=== PATIENT | female | born 1945 | race Caucasian/White ===

== ENCOUNTER 2018-02-03 21:47 | Emergency (ER) | payer MEDICARE, OTHER ==
[2018-02-03 21:59] VITALS: TEMP 98.2
[2018-02-03] MEDS ORDERED: MORPHINE SULFATE 4 MG/ML SYRINGE IV STA (22:13)
[2018-02-03] MEDS ORDERED: SODIUM CHLORIDE 0.9% 500 ML 500 ML IV STA (22:13)
--- NOTE | 2018-02-03 22:27 | ED ---
General Adult HPI - General Chief complaint: Abdominal Pain Stated complaint: abd pain Time Seen by Provider: 02/03/18 22:02 Source: patient, RN notes reviewed, old records reviewed Mode of arrival: ambulatory Limitations: no limitations - History of Present Illness Initial comments: 72-year-old female presents for evaluation of abdominal pain. Patient will present for the past 6 hours. This came after eating. Pain is been intermittent crampy in nature. Patient reports subjective fever and chills. She has had intermittent abdominal pain for some time and is scheduled for outpatient CT within the next several weeks. Denies any change in her bowels. No vomiting however she has had nausea. Denies chest pain. Denies epigastric pain. - Related Data Home Medications Medication Instructions Recorded Confirmed Levothyroxine Sodium [Synthroid] 175 mcg PO DAILY 02/03/18 02/03/18 Allergies Allergy/AdvReac Type Severity Reaction Status Date / Time No Known Allergies Allergy Verified 02/03/18 22:21 Review of Systems ROS Statement: Those systems with pertinent positive or pertinent negative responses have been documented in the HPI. ROS Other: All systems not noted in ROS Statement are negative. Past Medical History Past Medical History: Osteoarthritis (OA), Seizure Disorder Additional Past Medical History / Comment(s): seizures as a child History of Any Multi-Drug Resistant Organisms: None Reported Past Surgical History: Hysterectomy Past Psychological History: No Psychological Hx Reported Smoking Status: Current every day smoker Past Alcohol Use History: None Reported Past Drug Use History: Marijuana General Exam Limitations: no limitations General appearance: alert, in no apparent distress Head exam: Present: atraumatic, normocephalic Eye exam: Present: normal appearance, PERRL ENT exam: Present: normal exam Neck exam: Present: normal inspection. Absent: tenderness, meningismus Respiratory exam: Present: normal lung sounds bilaterally. Absent: respiratory distress, wheezes Cardiovascular Exam: Present: regular rate, normal rhythm GI/Abdominal exam: Present: soft, tenderness (Periumbilical tenderness to palpation). Absent: distended, guarding, rebound Extremities exam: Present: normal inspection, normal capillary refill. Absent: pedal edema Neurological exam: Present: alert, oriented X3, CN II-XII intact. Absent: motor sensory deficit Psychiatric exam: Present: normal affect, normal mood Skin exam: Present: warm, dry, intact. Absent: cyanosis, diaphoretic Course Vital Signs 02/03/18 21:51 Temperature 98.2 F Pulse Rate 84 Respiratory 18 Rate Blood Pressure 129/75 O2 Sat by Pulse 97 Oximetry Medical Decision Making - Medical Decision Making 72-year-old female presenting for crampy abdominal pain. Patient has had 2 bowel movements today. She is passing gas. Pain is periumbilical. She was scheduled for an outpatient computed tomography scan in the next one week. This was obtained in the emergency department, consistent with ileus. There is mild dilatation of the biliary tree, patient is status post cholecystectomy. She will be given GI follow-up regarding this abnormality. Otherwise laboratory studies are within normal limits, normal white blood cell count, stable hemoglobin, normal lactic acid. I reevaluation, patient is feeling better. She is offered observation for continues to deny treatment and GI consultation. She prefers outpatient follow-up. She is given GI follow-up regarding dilated biliary tree. She will continue symptomatic treatment at home. - Lab Data Result diagrams: 02/03/18 22:33 02/03/18 22:33 Lab Results 02/03/18 02/03/18 02/03/18 Range/Units 22:33 22:33 22:33 WBC 8.4 (3.8-10.6) k/uL RBC 5.08 (3.80-5.40) m/uL Hgb 15.7 (11.4-16.0) gm/dL Hct 48.9 H (34.0-46.0) % MCV 96.2 (80.0-100.0) fL MCH 30.9 (25.0-35.0) pg MCHC 32.1 (31.0-37.0) g/dL RDW 14.2 (11.5-15.5) % Plt Count 260 (150-450) k/uL Neutrophils % 73 % Lymphocytes % 19 % Monocytes % 6 % Eosinophils % 1 % Basophils % 1 % Neutrophils # 6.1 (1.3-7.7) k/uL Lymphocytes # 1.6 (1.0-4.8) k/uL Monocytes # 0.5 (0-1.0) k/uL Eosinophils # 0.1 (0-0.7) k/uL Basophils # 0.0 (0-0.2) k/uL Sodium 137 (137-145) mmol/L Potassium 4.3 (3.5-5.1) mmol/L Chloride 107 (98-107) mmol/L Carbon Dioxide 23 (22-30) mmol/L Anion Gap 7 mmol/L BUN 22 H (7-17) mg/dL Creatinine 0.57 (0.52-1.04) mg/dL Est GFR (CKD-EPI)AfAm >90 (>60 ml/min/1.73 sqM) Est GFR (CKD-EPI)NonAf >90 (>60 ml/min/1.73 sqM) Glucose 124 H (74-99) mg/dL Plasma Lactic Acid Paulo 1.2 (0.7-2.0) mmol/L Calcium 10.1 (8.4-10.2) mg/dL Total Bilirubin 0.5 (0.2-1.3) mg/dL AST 39 H (14-36) U/L ALT 41 (9-52) U/L Alkaline Phosphatase 193 H (38-126) U/L Total Protein 7.3 (6.3-8.2) g/dL Albumin 4.1 (3.5-5.0) g/dL Amylase 38 (30-110) U/L Lipase 25 (23-300) U/L Urine Color Urine Appearance (Clear) Urine pH (5.0-8.0) Ur Specific [place] (1.001-1.035) Urine Protein (Negative) Urine Glucose (UA) (Negative) Urine Ketones (Negative) Urine Blood (Negative) Urine Nitrite (Negative) Urine Bilirubin (Negative) Urine Urobilinogen (<2.0) mg/dL Ur Leukocyte Esterase (Negative) 02/04/18 Range/Units 00:09 WBC (3.8-10.6) k/uL RBC (3.80-5.40) m/uL Hgb (11.4-16.0) gm/dL Hct (34.0-46.0) % MCV (80.0-100.0) fL MCH (25.0-35.0) pg MCHC (31.0-37.0) g/dL RDW (11.5-15.5) % Plt Count (150-450) k/uL Neutrophils % % Lymphocytes % % Monocytes % % Eosinophils % % Basophils % % Neutrophils # (1.3-7.7) k/uL Lymphocytes # (1.0-4.8) k/uL Monocytes # (0-1.0) k/uL Eosinophils # (0-0.7) k/uL Basophils # (0-0.2) k/uL Sodium (137-145) mmol/L Potassium (3.5-5.1) mmol/L Chloride (98-107) mmol/L Carbon Dioxide (22-30) mmol/L Anion Gap mmol/L BUN (7-17) mg/dL Creatinine (0.52-1.04) mg/dL Est GFR (CKD-EPI)AfAm (>60 ml/min/1.73 sqM) Est GFR (CKD-EPI)NonAf (>60 ml/min/1.73 sqM) Glucose (74-99) mg/dL Plasma Lactic Acid Paulo (0.7-2.0) mmol/L Calcium (8.4-10.2) mg/dL Total Bilirubin (0.2-1.3) mg/dL AST (14-36) U/L ALT (9-52) U/L Alkaline Phosphatase (38-126) U/L Total Protein (6.3-8.2) g/dL Albumin (3.5-5.0) g/dL Amylase (30-110) U/L Lipase (23-300) U/L Urine Color Light Yellow Urine Appearance Clear (Clear) Urine pH 6.0 (5.0-8.0) Ur Specific [place] 1.012 (1.001-1.035) Urine Protein Negative (Negative) Urine Glucose (UA) Negative (Negative) Urine Ketones Negative (Negative) Urine Blood Negative (Negative) Urine Nitrite Negative (Negative) Urine Bilirubin Negative (Negative) Urine Urobilinogen <2.0 (<2.0) mg/dL Ur Leukocyte Esterase Negative (Negative) Disposition Clinical Impression: Abdominal pain, Ileus Disposition: HOME SELF-CARE Condition: Stable Instructions: Abdominal Pain (ED), Ileus (ED) Is patient prescribed a controlled substance at d/c from ED?: No Referrals: Jennifer Mcallister DO [Primary Care Provider] - 1-2 days Edgar Root MD [STAFF PHYSICIAN] - 1-2 days Time of Disposition: 00:23
[2018-02-03 23:08] LABS: ALT 41 U/L (9-52); AST 39 U/L (14-36); Albumin 4.1 g/dL (3.5-5.0); Alkaline Phosphatase 193 U/L (38-126); Amylase 38 U/L (30-110); Anion Gap 7 mmol/L; Blood Urea Nitrogen 22 mg/dL (7-17); Calcium 10.1 mg/dL (8.4-10.2); Carbon Dioxide 23 mmol/L (22-30); Chloride 107 mmol/L (98-107); Glucose 124 mg/dL (74-99); Lipase 25 U/L (23-300); Potassium 4.3 mmol/L (3.5-5.1); Sodium 137 mmol/L (137-145); Total Bilirubin 0.5 mg/dL (0.2-1.3); Total Protein 7.3 g/dL (6.3-8.2)
[2018-02-03 23:15] LABS: Basophils % (A) 1 %; Eosinophils # (A) 0.1 k/uL (0-0.7); Eosinophils % (A) 1 %; HCT 48.9 % (34.0-46.0); HGB 15.7 gm/dL (11.4-16.0); Lymphocytes # (A) 1.6 k/uL (1.0-4.8); Lymphocytes % (A) 19 %; MCH 30.9 pg (25.0-35.0); MCHC 32.1 g/dL (31.0-37.0); MCV 96.2 fL (80.0-100.0); Mean Platelet Volume 6.9; Monocytes # (A) 0.5 k/uL (0-1.0); Monocytes % (A) 6 %; Neutrophils # (A) 6.1 k/uL (1.3-7.7); Neutrophils % (A) 73 %; Platelet Count 260 k/uL (150-450); RBC 5.08 m/uL (3.80-5.40); RDW 14.2 % (11.5-15.5); WBC 8.4 k/uL (3.8-10.6)
--- NOTE | 2018-02-04 00:04 | CT ---
EXAMINATION TYPE: CT abdomen pelvis w con DATE OF EXAM: 02/03/2018 COMPARISON: None HISTORY: No prior, mid abd pain starting tonight CT DLP: 462.70 mGycm Automated exposure control for dose reduction was used. TECHNIQUE: Helical acquisition of images was performed from the lung bases through the pelvis. CONTRAST: Performed without Oral Contrast and with IV Contrast, patient injected with 100 mL of Isovue 300. FINDINGS: There is subsegmental atelectasis at the lung bases. Heart is slightly enlarged. There is no pericard ial effusion. There is no pleural effusion. There is mild dilation of the biliary tree. There are clips from cholecystectomy. Spleen appears norm al. Stomach is large. There is no evidence of a pancreatic mass. There is no adrenal mass. Bladder distends smoothly. There are some diverticula in the sigmoid colon. There is no evidence of diverticulitis. Abdominal aorta is atheromatous. There is no inguinal hernia . There is no evidence of a pelvic mass. There is a first-degree L3-4 spondylolisthesis. There is mod erately severe L3-4 bony spinal stenosis. There is posterior fusion surgery at L4-5. There is narrowi ng of disc spaces throughout the lumbar spine. There is no acute compression fracture. There is sligh t anterior wedging of L3 and L1 vertebra that appears old. There are multiple fluid-filled loops of d istal small bowel. There is fluid in the right colon. IMPRESSION: FLUID IN THE SMALL BOWEL AND LARGE BOWEL SUGGESTIVE OF ILEUS. NO FREE AIR. MILDLY DILATED BILIARY TREE. NO OBSTRUCTING MASS SEEN. MRCP MIGHT BE HELPFUL FOR FURTHER EVALUATION. L3-4 MODERATE BONY SPINAL STENOSIS.
[2018-02-04 00:20] LABS: Appearance,Urine Clear (Clear); Bilirubin,Urine Negative (Negative); Blood,Urine Negative (Negative); Color,Urine Light Yellow; Glucose,Urine (UA) Negative (Negative); Ketones,Urine Negative (Negative); Leukocyte Esterase,Urine Negative (Negative); Nitrite,Urine Negative (Negative); Protein,Urine Negative (Negative); Specific Gravity,Urine 1.012 (1.001-1.035); Urobilinogen,Urine <2.0 mg/dL (<2.0)
[2018-02-04 00:49] VITALS: BP 124/78; PULSE 86; RESP 16
== END 2018-02-04 00:48 | disposition home or self-care (01) ==
LOC: EEVIPCON 21:47 → EC 21:47
DX: K56.7 Ileus, unspecified (principal); K83.8 Other specified diseases of biliary tract; F17.200 Nicotine dependence, unspecified, uncomplicated; Z79.899 Other long term (current) drug therapy; Z90.49 Acquired absence of other specified parts of digestive tract
CPT/HCPCS: 99285; 96374; 96361; 36415; 80053; 82150; 83605; 83690; 85025; 81003; 74177; J2270; Q9967

== ENCOUNTER → 2018-02-10 | Outpatient (CLI) | payer MEDICARE, OTHER ==
[2018-02-10 12:33] LABS: Blood Urea Nitrogen 20 mg/dL (7-17)
--- NOTE | 2018-02-10 16:03 | CT ---
EXAMINATION TYPE: CT abdomen pelvis w con DATE OF EXAM: 02/10/2018 COMPARISON: 02/03/2018 INDICATION: Generalized abdominal pain and melena. DLP: 629 mGycm, Automated exposure control for dose reduction was used. CONTRAST: 100 mL of Isovue M300. Study performed with Oral Contrast TECHNIQUE: Axial images were obtained from above the diaphragm to the pubic rami in the axial plane a t 5 mm thick sections. Reconstructed images are reviewed on the computer in the coronal plane. FINDINGS: Limited CT sections are obtained the lung bases. The lung bases are clear. CT ABDOMEN: There is a paucity of abdomen fat which makes evaluation somewhat difficult. Liver: Normal Spleen: Normal Pancreas: Pancreas is atrophic. Adrenal glands: No suspicious enlargement is identified. Left adrenal gland is not well visualized. Gallbladder: Surgically absent Kidneys: No masses are evident. No hydronephrosis is present. No cysts are present. Delayed images were obtained through the kidneys, which remain unremarkable. Aorta: Vascular calcification is within the aorta. There is a small section which is taller than wid e and within the midabdomen measuring 2.5 cm in AP dimension. Aorta is otherwise unremarkable. Inferior vena cava: Normal. CT PELVIS: Loops of bowel within the abdomen and pelvis are normal. Fecal debris is in the distal colon. Appendix: Normal as limitedly visualized. Urinary bladder: Normal. Genitourinary structures: Uterus and ovaries are not identified. Osseous structures: No suspicious lytic or sclerotic lesions. Pedicle screws are in the lower lumbar spine. IMPRESSIONS: 1.
== END | disposition home or self-care (01) ==
LOC: RADCTMAIN 11:52
PROVIDERS: ATTEND Family Medicine
DX: K92.1 Melena (principal)
CPT/HCPCS: 82565; 84520; 74177; 36415; Q9967

== ENCOUNTER → 2018-02-15 | Day surgery (SDC) | payer MEDICARE, OTHER ==
[~2018-02-15] MED LIST: LACTATED RINGERS 1,000 ML IV SCH; LIDOCAINE 1% 20 ML VIAL (10MG/ML) FOR IV START INTRADERMA ONE; LIDOCAINE 1% INJ 10MG/ML (20 ML MDV) ONE; PROPOFOL 10 MG/ML 20 ML VIAL IV ONE; fentaNYL (PF) 50 MCG/ML 2 ML AMP ONE
[2018-02-15 11:11] VITALS: TEMP 98
--- NOTE | 2018-02-15 11:54 | P.GSHP ---
History of Present Illness H&P Date: 02/15/18 Chief Complaint: GI bleed 's is a 72-year-old female who presents today for EGD and colonoscopy. Patient complaints of rectal bleeding and black stools. Past Medical History Past Medical History: Memory Impairment, Osteoarthritis (OA), Seizure Disorder, Thyroid Disorder Additional Past Medical History / Comment(s): seizures as a child ;Abd. pain History of Any Multi-Drug Resistant Organisms: None Reported Past Surgical History: Hysterectomy Past Anesthesia/Blood Transfusion Reactions: No Reported Reaction Smoking Status: Current every day smoker - Past Family History Mother Family Medical History: Unable to Obtain Medications and Allergies Home Medications Medication Instructions Recorded Confirmed Type Levothyroxine Sodium [Synthroid] 175 mcg PO DAILY 02/03/18 02/09/18 History Allergies Allergy/AdvReac Type Severity Reaction Status Date / Time No Known Allergies Allergy Verified 02/15/18 10:57 Surgical - Exam Vital Signs Temp Pulse Resp BP Pulse Ox 98.0 F 87 16 131/74 98 02/15/18 11:09 02/15/18 11:09 02/15/18 11:09 02/15/18 11:09 02/15/18 11:09 - General well developed, no distress - Eyes PERRL - ENT normal pinna - Neck no masses - Respiratory normal expansion - Cardiovascular Rhythm: regular - Abdomen Abdomen: soft, non tender Assessment and Plan Assessment: GI bleed. We'll perform EGD and colonoscopy.
--- NOTE | 2018-02-15 12:18 | P.OP ---
Date of Procedure: 02/15/18 Preoperative Diagnosis: Screening colonoscopy Postoperative Diagnosis: Mild diverticulosis Colon Visualized the splenic flexure Antral gastritis Small hiatal hernia Mild esophagitis Procedure(s) Performed: EGD Colonoscopy Anesthesia: MAC Surgeon: Bar Busch Pathology: other (Antrum, esophagus) Condition: stable Disposition: PACU Description of Procedure: The patient's placed on the endoscopy table in the lateral position. She received IV sedation. The gastroscope placed oropharynx and passed in the esophagus and stomach. The scope was then placed through the pylorus. The first and second portion of the duodenum appeared normal. Scope was then brought back the antrum and this appeared mildly inflamed. A biopsies performed. Scope was then retroflexed and remainder of the stomach appeared normal. The patient had a small hiatal hernia. The GE junction was at 40 cm.. The distal esophagus appeared mildly inflamed. The distal esophagus was biopsied. The proximal esophagus appeared normal. The scope was withdrawn for patient. Next digital rectal exam was performed which revealed no masses. The flexible colonoscope was then lace the patient's anus passed with colon. The colon was very tortuous. The scope could not be advanced beyond the splenic flexure. This was due to tortuosity the valve. Scope was withdrawn. Remainder the descending colon; had a few scattered diverticula. There is no evidence of any GI bleed. Scope was withdrawn for patient. Patient was scheduled for a barium enema.
[2018-02-15 13:10] VITALS: RESP 18
[2018-02-15 13:48] VITALS: BP 106/68; PULSE 80
--- NOTE | 2018-02-15 15:53 | FL ---
EXAMINATION TYPE: FL barium enema w air contrast DATE OF EXAM: 02/15/2018 COMPARISON: NONE HISTORY: Incomplete colonoscopy. History of diverticulitis and target diarrhea for 2 weeks. No biopsi es. TECHNIQUE: A single contrast barium enema study is performed. 2 minutes and 15 seconds of fluoroscop y time was utilized with 52 images saved. FINDINGS: Luncheonette Manager view of the abdomen shows overall non-obstructive bowel gas pattern. Postsurgical ch anges of L4-L5 are seen with prior cholecystectomy. No pneumoperitoneum is identified. No evidence of any mass or polyp, obstructing or constricting lesion throughout the colon. Few sigmoi d diverticula are seen on the postevacuation images.. Appendix was filled and appeared normal. The terminal ileum was refluxed and appears within normal l imits. Cecum is partially limited evaluation due to retained stool. IMPRESSION: Few sigmoid diverticula and somewhat limited evaluation of the cecum, otherwise unremark able exam.
== END | disposition home or self-care (01) ==
LOC: EEVIPCON 09:00 → ORWHC2ENDO 10:35
PROVIDERS: ATTEND Surgery
DX: K29.50 Unspecified chronic gastritis without bleeding (principal); K62.5 Hemorrhage of anus and rectum; K57.30 Diverticulosis of large intestine without perforation or abscess without bleeding; K63.89 Other specified diseases of intestine; K44.9 Diaphragmatic hernia without obstruction or gangrene; M19.90 Unspecified osteoarthritis, unspecified site; G40.909 Epilepsy, unspecified, not intractable, without status epilepticus; E07.9 Disorder of thyroid, unspecified; F17.200 Nicotine dependence, unspecified, uncomplicated; Z79.890 Hormone replacement therapy
CPT/HCPCS: 88305; 74280; 43239; 45330; J2001; J3010; J2704; 45378

== ENCOUNTER → 2018-10-17 | Outpatient (CLI) | payer MEDICARE, OTHER ==
--- NOTE | 2018-10-17 13:04 | MR ---
EXAMINATION TYPE: MR brain wo/w con DATE OF EXAM: 10/17/2018 COMPARISON: 05/07/2014 HISTORY: Memory Loss / Gait disturbance TECHNIQUE: Multiplanar, multisequence images of the brain and brainstem is performed without and with IV contras t, utilizing 4.5 mL intravenous Gadavist . FINDINGS: Diffusion weighted images demonstrate no evidence of a recent infarct or other diffusion ab normality. There is an area of low-attenuation the right cerebellar hemisphere compatible with remote ischemia stable from the prior exam. There are multifocal areas of abnormal signal the white matter is compatible with nonspecific white m atter change. Most likely etiology is remote microvascular ischemia. Findings are fairly similar to t he prior exam. Ventricular system is compatible with the patient's age. No midline shift or mass effect. Areas of ab normal signal involving the basal ganglia most likely related to prominent Virchow-Romero spaces. Tiny remote lacunar infarct in the differential. Changes of chronic sinusitis noted. Midline structures demonstrate normal morphology. The craniocerv ical junction appears within normal limits. Post contrast images demonstrate no abnormal enhancement . The dural venous sinuses appear patent. IMPRESSION: 1. Remote right cerebellar hemisphere ischemia. 2. Mild nonspecific white matter changes most typical remote microvascular ischemia.
== END | disposition home or self-care (01) ==
LOC: RADMRIMAIN 11:14
PROVIDERS: ATTEND Family Medicine
DX: R90.89 Other abnormal findings on diagnostic imaging of central nervous system (principal); I67.82 Cerebral ischemia; R26.9 Unspecified abnormalities of gait and mobility
CPT/HCPCS: 70553; A9585

== ENCOUNTER → 2019-12-07 | Outpatient (CLI) | payer MEDICARE, OTHER ==
--- NOTE | 2019-12-08 01:24 | MR ---
EXAMINATION TYPE: MR brain wo con DATE OF EXAM: 12/07/2019 COMPARISON: 10/17/2018 HISTORY: Headaches Multiplanar multiecho imaging of the brain was performed without contrast. There is mild cerebral cortical atrophy. There is no mass effect nor midline shift. There is no sign of intracranial hemorrhage. There is some patchy increased signal in the periventricular white matter on the FLAIR and T2 images. These measure up to 1 cm. The total number is less than 15. Most of thes e lesions are less than 5 mm. The brainstem is intact. There is a irregular shaped 1.5 cm area of inc reased signal in the right posterior cerebellar hemisphere consistent with an old cortical infarct un changed. Sella turcica appears normal. Corpus callosum is intact. The diffusion images show no evidence of acute infarct. IMPRESSION: Cerebral atrophy. Patchy white matter signal changes as above have a pattern more consistent with chr onic small vessel ischemia. Demyelinating disease is thought to be less likely. No significant change compared to old exam. 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
== END | disposition home or self-care (01) ==
LOC: RADMRIMAIN 16:24
PROVIDERS: ATTEND Family Medicine
DX: G31.9 Degenerative disease of nervous system, unspecified (principal); R90.82 White matter disease, unspecified; Z86.73 Personal history of transient ischemic attack (TIA), and cerebral infarction without residual deficits
CPT/HCPCS: 70551

== ENCOUNTER 2019-12-14 09:50 | Emergency (ER) | payer MEDICARE, OTHER ==
[2019-12-14 10:03] VITALS: BP 98/57; RESP 18; TEMP 98.2
--- NOTE | 2019-12-14 10:44 | ED ---
Fall HPI - General Chief Complaint: Fall Stated Complaint: Fall, knee injury Time Seen by Provider: 12/14/19 10:09 Source: patient, family Mode of arrival: wheelchair - History of Present Illness Initial Comments: 74-year-old female presenting today for chief complaint of left knee right wrist pain x ~12 hours. Patient states that her foot slipped out from under her yesterday while walking and she fell onto her left anterior knee she denies dislocation she denies any injury to her head neck back abdomen or chest. Patient states she also caught her fall with her right wrist she states she sustained a small scratch. Patient denies any deep laceration. She states she does have pain in the right wrist as well as the left knee today with notable swelling of the left knee. Patient denies any numbness tingling or loss of sensation, loss or pallor of the extremities. Patient denies additional complaints. Upon arrival patient appears well nontoxic in no acute distress. SHe has been able to weight bear at home with difficulty secondary to pain. - Related Data Home Medications Medication Instructions Recorded Confirmed Levothyroxine Sodium [Synthroid] 175 mcg PO DAILY 02/03/18 02/09/18 Allergies Allergy/AdvReac Type Severity Reaction Status Date / Time No Known Allergies Allergy Verified 12/14/19 10:03 Review of Systems ROS Statement: Those systems with pertinent positive or pertinent negative responses have been documented in the HPI. ROS Other: All systems not noted in ROS Statement are negative. Past Medical History Past Medical History: Memory Impairment, Osteoarthritis (OA), Seizure Disorder, Thyroid Disorder Additional Past Medical History / Comment(s): seizures as a child ;Abd. pain History of Any Multi-Drug Resistant Organisms: None Reported Past Surgical History: Hysterectomy Past Anesthesia/Blood Transfusion Reactions: No Reported Reaction Past Psychological History: No Psychological Hx Reported Smoking Status: Current every day smoker Past Alcohol Use History: None Reported Past Drug Use History: None Reported - Past Family History Mother Family Medical History: Unable to Obtain General Exam - General Exam Comments Initial Comments: General: The patient is awake and alert, in no distress Eye: +3 mm pupils are equal, round and reactive to light, extra-ocular movements are intact. No nystagmus. There is normal conjunctiva bilaterally. No signs of icterus. Ears, nose, mouth and throat: There are moist mucous membranes and no oral lesions. Neck: The neck is supple, there is no tenderness or JVD. Cardiovascular: There is a regular rate and rhythm. No murmur, rub or gallop is appreciated. Respiratory: Lungs are clear to auscultation, respirations are non-labored, breath sounds are equal. No wheezes, stridor, rales, or rhonchi. Gastrointestinal: Soft, non-distended, non-tender abdomen without masses or organomegaly noted. There is no rebound or guarding present. Musculoskeletal: Normal ROM, no tenderness. Strength 5/5. Sensation intact. Radial pulses equal bilaterally 2+. Neurological: A&O x 3. CN II-XII intact grossly, There are no obvious motor or sensory deficits. Coordination appears grossly intact. Speech is normal. Skin: Skin is warm and dry and no rashes or lesions are noted. Psychiatric: Cooperative, appropriate mood & affect, normal judgment. 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 patient also has history of scleroderma. Pt was also stating she has chronic b/l leg cramping for years and wanted electrolytes checked- denies CP/SOB or additional complaints. Denies swelling aside from new left knee swelling. 12/14/19 11:09 Procedures - Orthopedic Splinting/Casting Injury #1 Side: right Upper Extremity Injury Location: wrist Upper Extremity Immobilizer: thumb spica Lower Extremity Immobilizer: Calvin wrap, synthetic pre-padded splint Additional Comments: Neurovascularly intact prior to and after splinting Medical Decision Making - Medical Decision Making 34-year-old female presenting today for chief complaint of slip and fall. Left knee swelling on physical examination patient otherwise neurovascularly intact. Can weight bear on the left knee. Patient did have some scaphoid tenderness of the right wrist whcih was splinted. 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 Patient is agreeable to this care plan I discussed Rice instructions for the left knee. Patient discharged appearing well after discussing case with Dr. Darrel Pepe WNL on CMP. - Lab Data Result diagrams: 12/14/19 10:57 Lab Results 12/14/19 Range/Units 10:57 Sodium 141 (137-145) mmol/L Potassium 4.3 (3.5-5.1) mmol/L Chloride 107 (98-107) mmol/L Carbon Dioxide 29 (22-30) mmol/L Anion Gap 5 mmol/L BUN 25 H (7-17) mg/dL Creatinine 0.55 (0.52-1.04) mg/dL Est GFR (CKD-EPI)AfAm >90 (>60 ml/min/1.73 sqM) Est GFR (CKD-EPI)NonAf >90 (>60 ml/min/1.73 sqM) Glucose 75 (74-99) mg/dL Calcium 9.5 (8.4-10.2) mg/dL Total Bilirubin 0.6 (0.2-1.3) mg/dL AST 31 (14-36) U/L ALT 24 (4-34) U/L Alkaline Phosphatase 102 (38-126) U/L Total Protein 6.2 L (6.3-8.2) g/dL Albumin 3.7 (3.5-5.0) g/dL Disposition Clinical Impression: Fall, Left anterior knee pain, Knee effusion, left, Right wrist pain Disposition: HOME SELF-CARE Condition: Good Instructions (If sedation given, give patient instructions): Swollen Knee Joint (ED), Scaphoid Fracture (ED) Additional Instructions: Please use medication as discussed. 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 Ice, elevate the left knee. Please return to emergency room if the symptoms increase or worsen or for any other concerns. Is patient prescribed a controlled substance at d/c from ED?: No Referrals: Jennifer Mcallister DO [Primary Care Provider] - 1-2 days Harjinder Urena DO [Medical Doctor] - 1-2 days Time of Disposition: 11:03
[2019-12-14] MEDS ORDERED: HYDROcodone/APAP 5-325MG 1 EACH TAB PO STA (10:51)
--- NOTE | 2019-12-14 10:52 | XR ---
EXAMINATION TYPE: XR knee complete LT DATE OF EXAM: 12/14/2019 CLINICAL HISTORY: pain TECHNIQUE: Three views of the left knee are obtained. COMPARISON: None. FINDINGS: There is no acute fracture/dislocation. The tri-compartment joint spaces appear within no rmal limits. Suprapatellar joint effusion noted moderate to large in size. Bony structures are osteop enic. IMPRESSION: There is no acute fracture or dislocation ICD 10 NO FRACTURE, INITIAL EVALUATION
[2019-12-14 10:53] VITALS: PULSE 77
--- NOTE | 2019-12-14 10:58 | XR ---
EXAMINATION TYPE: XR wrist complete RT DATE OF EXAM: 12/14/2019 COMPARISON: NONE HISTORY: Pain TECHNIQUE: Four views submitted. FINDINGS: The osseous structures are intact. There is diffuse osteopenia and arthropathy of the radiocarpal pedrito nt and first carpal metacarpal joint. There is some reduction in size of the lunate bone suggestive o f osteonecrosis or Kienb?ck's malacia. Remote fracture of the ulnar styloid noted. Diffuse osteopenia noted. IMPRESSION: 1. No definite acute fracture or dislocation if symptoms persist, follow-up study in 7 to 10 days wo uld be suggested 2. Correlate for osteonecrosis or Kienb?ck'smalacia of the lunate point. 3. Arthropathy with diffuse osteopenia
[2019-12-14 11:29] LABS: ALT 24 U/L (4-34); AST 31 U/L (14-36); African American GFR (CKD) >90 (>60 ml/min/1.73 sqM); Albumin 3.7 g/dL (3.5-5.0); Alkaline Phosphatase 102 U/L (38-126); Anion Gap 5 mmol/L; Blood Urea Nitrogen 25 mg/dL (7-17); Calcium 9.5 mg/dL (8.4-10.2); Carbon Dioxide 29 mmol/L (22-30); Chloride 107 mmol/L (98-107); Glucose 75 mg/dL (74-99); Non-African American GFR(CKD) >90 (>60 ml/min/1.73 sqM); Potassium 4.3 mmol/L (3.5-5.1); Sodium 141 mmol/L (137-145); Total Bilirubin 0.6 mg/dL (0.2-1.3); Total Protein 6.2 g/dL (6.3-8.2)
== END 2019-12-14 11:42 | disposition home or self-care (01) ==
LOC: EC 09:50
DX: M25.531 Pain in right wrist (principal); M25.572 Pain in left ankle and joints of left foot; M25.462 Effusion, left knee; W01.0XXA Fall on same level from slipping, tripping and stumbling without subsequent striking against object, initial encounter; Y93.01 Activity, walking, marching and hiking
CPT/HCPCS: 29125; 36415; 80053; 99283

== ENCOUNTER → 2020-09-27 | Outpatient (CLI) | payer MEDICARE, OTHER | END | disposition home or self-care (01) | LOC: LABWHC1 16:26 | PROVIDERS: ATTEND Psychiatry & Neurology Neurology | DX: M54.81 Occipital neuralgia (principal); R41.3 Other amnesia | CPT/HCPCS: 36415; 82306 ==

== ENCOUNTER → 2020-10-30 | Outpatient (CLI) | payer MEDICARE, OTHER ==
--- NOTE | 2020-10-30 10:26 | P.CONS ---
History of Present Illness - Reason for Consult Consult date: 10/30/20 - Chief Complaint Headache - History of Present Illness This is a 75-year-old lady with history of chronic headache for many years as she states. The headache starts in the occipital area and radiates to the front anteriorly to the back of her right thigh. The patient describes her headache as throbbing in quality. She denies any associated photophobia or nausea. She also denies any redness in the right eye or any tearing during the headache. The patient states that time the headache starts she sleeps for a few hours and this takes care of her headache. 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 The patient was referred to us for a trial of occipital nerve block bilaterally. Past Medical History Past Medical History: Cancer, Hypertension, Memory Impairment, Osteoarthritis (OA), Seizure Disorder, Thyroid Disorder Additional Past Medical History / Comment(s): seizures as a child, scleroderma, ?female cancer years ago, urinary incontinence, ?kidney problems-saw a kidney drRicarda but didn't like him per daughter, severe migraines recently, saw neuro.(Johnny) History of Any Multi-Drug Resistant Organisms: None Reported Past Surgical History: Hysterectomy Additional Past Surgical History / Comment(s): hyst @age 31 Past Anesthesia/Blood Transfusion Reactions: No Reported Reaction Past Psychological History: No Psychological Hx Reported Additional Psychological History / Comment(s): daughter & son are co-legal guardians, pt. lives on her own Smoking Status: Current every day smoker Past Alcohol Use History: None Reported Additional Past Alcohol Use History / Comment(s): has smoked about 1/2 ppd for years per daughter Past Drug Use History: Marijuana Additional Drug Use History / Comment(s): occ. use - Past Family History Mother Family Medical History: Unable to Obtain Medications and Allergies Home Medications Medication Instructions Recorded Confirmed Type Levothyroxine Sodium [Synthroid] 137 mcg PO DAILY 02/03/18 10/24/20 History Esomeprazole Magnesium [NexIUM] 20 mg PO DAILY 10/24/20 10/24/20 History Allergies Allergy/AdvReac Type Severity Reaction Status Date / Time Penicillins Allergy Rash/Hives Verified 10/24/20 15:49 Physical Exam - Neurologic Postoperative tenderness around the occipital nerves bilaterally more on the right side than the left side. Tinel's sign is negative bilaterally. Positive tenderness in the cervical paravertebral musculature and in the trapezius muscles bilaterally. Decreased hand weight recorder bilaterally to 4 out of 5 due to arthritis in the hands. Assessment and Plan Plan: This is a 75-year-old lady with chronic headache that might be due to occipital neuralgia. The patient was referred to us by Dr. Turner for a trial of occipital nerve block. We will plan on doing this procedure which was explained to the patient and her family and their questions were answered. If this injection does not help the patient's pain then we might need to try cervical medial branch block for levels C2, C3 and third occipital nerve in case that she has cervicogenic headache. I thank you for the referral
[2020-10-30 10:48] VITALS: BP 112/82; PULSE 64; RESP 16; TEMP 98.2
== END ==
LOC: PNWHC3 09:35
PROVIDERS: ATTEND Anesthesiology
DX: M54.81 Occipital neuralgia (principal); I10 Essential (primary) hypertension; M19.90 Unspecified osteoarthritis, unspecified site; F17.210 Nicotine dependence, cigarettes, uncomplicated; Z88.0 Allergy status to penicillin
CPT/HCPCS: 99211

== ENCOUNTER 2020-11-28 09:14 | Day surgery (SDC) | payer MEDICARE, OTHER ==
[2020-11-21 13:37] VITALS: BMI 16.2
[2020-11-28 09:47] VITALS: TEMP 98.9
[2020-11-28] MEDS ORDERED: LIDOCAINE 1% (10MG/ML) FOR IV START INTRADERMA ONE (10:08)
[2020-11-28] MEDS ORDERED: LACTATED RINGERS 1,000 ML IV ONE (10:08)
[2020-11-28] MEDS ORDERED: TRIAMCINOLONE ACETONIDE 40 MG/ML 1 ML VIAL ONE (10:21)
[2020-11-28] MEDS ORDERED: ROPIVACAINE 5MG/ML 20ML VIAL ONE (10:21)
--- NOTE | 2020-11-28 10:28 | P.PCN ---
Date of Procedure: 11/28/20 Description of Procedure: Pre-operative diagnosis: bilateral occipital neuralgia Post Operative Diagnosis same Procedure: bilateral occipital nerve block ANESTHESIA: none EBL: Minimal PROCEDURE INDICATION: The patient with neck pain and headache secondary to occipital neuralgia unresponsive to conservative treatments. PROCEDURE DESCRIPTION / TECHNIQUE: The patient was seen and identified in the preoperative area. Risks, benefits, complications, and alternatives were discussed with the patient, the patient agreed to proceed with the procedure and signed the consent. IV was started. Vital signs remained stable throughout the procedure. Patient was taken to the OR and time out was completed. The patient was placed in the seated position on the procedure table. The cervical area and bilateral occiptial area were prepped with alcohol swab. Vital signs were closely monitored during the procedure. The bilateral occiptal ridge was palpated and was then accessed with a 25 G needle. Then after negative aspiration, 2.5 ml of the block solution containing 5 ml of ropivacaine 0.5% and Kenalog 40 mg was injected to the region of each occipital nerve. Needle was withdrawn intact. Patient tolerated procedure well. No acute complications.
[2020-11-28] MEDS ORDERED: IV FLUID CONTINUATION 975 ML IV ONE (10:34)
[2020-11-28 10:40] VITALS: PULSE 96; RESP 20
[2020-11-28 11:05] VITALS: BP 104/62
== END 2020-11-28 11:04 | disposition home or self-care (01) ==
LOC: ORPAIN 09:14
PROVIDERS: ATTEND Anesthesiology
DX: M54.81 Occipital neuralgia (principal)
CPT/HCPCS: 64405; J3301; J2795

== ENCOUNTER 2024-06-29 12:55 | Inpatient (IN) | payer OTHER ==
[2024-06-29] MEDS: SODIUM CHLORIDE 0.9% 500 ML 500 ML IV ONE ×3 (14:20→16:32)
[2024-06-29 14:27] LABS: Basophils # (A) 0.1 k/uL (0-0.2); Basophils % (A) 1 %; Eosinophils # (A) 0.1 k/uL (0-0.7); Eosinophils % (A) 1 %; HCT 46.7 % (34.0-46.0); HGB 15.3 gm/dL (11.4-16.0); Lymphocytes # (A) 1.8 k/uL (1.0-4.8); Lymphocytes % (A) 21 %; MCH 31.6 pg (25.0-35.0); MCHC 32.8 g/dL (31.0-37.0); MCV 96.3 fL (80.0-100.0); Mean Platelet Volume 8.2; Monocytes # (A) 0.5 k/uL (0-1.0); Monocytes % (A) 6 %; Neutrophils # (A) 6.2 k/uL (1.3-7.7); Neutrophils % (A) 70 %; Platelet Count 284 k/uL (150-450); RBC 4.85 m/uL (3.80-5.40); RDW 13.9 % (11.5-15.5); WBC 8.8 k/uL (3.8-10.6)
[2024-06-29 14:29] LABS: Amorphous Sediment,Urine Many /hpf; Appearance,Urine Turbid (Clear); Bilirubin,Urine Negative (Negative); Blood,Urine Moderate (Negative); Color,Urine Yellow; Glucose,Urine (UA) Negative (Negative); Ketones,Urine Negative (Negative); Leukocyte Esterase,Urine Large (Negative); Mucus,Urine Occasional /hpf; Nitrite,Urine Negative (Negative); Protein,Urine 1+ (Negative); RBC,Urine 85 /hpf (0-5); Specific Gravity,Urine 1.018 (1.001-1.035); Urobilinogen,Urine <2.0 mg/dL (<2.0); WBC,Urine >182 /hpf (0-5)
--- NOTE | 2024-06-29 15:16 | ED ---
Recheck HPI - General Source: family, EMS, RN notes reviewed Mode of arrival: EMS Limitations: altered mental status <Ivy Ho - Last Filed: 06/29/24 16:40> <Cecy Castellano - Last Filed: 06/29/24 23:38> - General Chief Complaint: Recheck/Abnormal Lab/Rx Stated Complaint: dehydration Time Seen by Provider: 06/29/24 13:11 - History of Present Illness Initial Comments: This is a 78-year-old female who presents to the emergency department for hypotension. Patient has dementia and is A&O x 0. Patient lives alone and follows with [facility]ait[facility] FLORE[facility]. Her son also helps care for her. She reportedly followed up with Kaitlyn florez today and they were concerned that her blood pressure was in the 90s systolically and they sent her here for evaluation. They did note that she was treated for UTI and are concerned that it may not have resolved. Based on her medication list it appears that she was given a one-time dose of fosfomycin. Per Kaitlyn florez, patient is at her baseline mentation. When we contacted Kaitlyn FLOREZ directly, we were then told after she had been here for quite a while that she was also sent in for A-fib with RVR and had a heart rate in the 130s. This had not been initially relayed to us. Patient's family denies any history of A-fib and she is not taking any blood thinners. They do also note that she had influenza last week. (Ivy Ho) - Related Data Home Medications Medication Instructions Recorded Confirmed Levothyroxine Sodium [Synthroid] 137 mcg PO DAILY 02/03/18 06/29/24 Ammonium Lactate [Amlactin] 1 applic TOPICAL DAILY 06/29/24 06/29/24 Calcium Carbonate/Vitamin D3 1 tab PO DAILY 06/29/24 06/29/24 [Calcium 500-Vit D3 400 Chew Tb] Divalproex Sprinkle [Depakote 250 mg PO HS 06/29/24 06/29/24 Sprinkle] Donepezil [Aricept] 10 mg PO DAILY 06/29/24 06/29/24 Fexofenadine HCl [Damaris Allergy] 180 mg PO DAILY 06/29/24 06/29/24 Fluticasone Nasal [place] [Flonase 1 spray EA NOSTRIL DAILY 06/29/24 06/29/24 Nasal [place]] Hydrocortisone Cream 1 applic TOPICAL BID 06/29/24 06/29/24 [Hydrocortisone 1% Cream] Methenamine Hippurate [Hiprex] 1 gm PO BID 06/29/24 06/29/24 Multivit-Min/Iron/Folic/Lutein 1 tab PO DAILY 06/29/24 06/29/24 [Centrum Silver Women Tablet] Nortriptyline [Pamelor] 10 mg PO HS 06/29/24 06/29/24 Ondansetron Odt [Zofran Odt] 4 mg PO Q8HR PRN 06/29/24 06/29/24 Sodium Chloride [Saline Nasal Mist] 1 spray EA NOSTRIL TID PRN 06/29/24 06/29/24 Allergies Allergy/AdvReac Type Severity Reaction Status Date / Time Penicillins Allergy Rash/Hives Verified 06/29/24 13:48 Review of Systems ROS Other: All systems not noted in ROS Statement are negative. <Ivy Ho - Last Filed: 06/29/24 16:40> ROS Other: All systems not noted in ROS Statement are negative. <Cecy Castellano - Last Filed: 06/29/24 23:38> ROS Statement: Those systems with pertinent positive or pertinent negative responses have been documented in the HPI. Past Medical History Past Medical History: Cancer, Hypertension, Memory Impairment, Osteoarthritis (OA), Seizure Disorder, Thyroid Disorder Additional Past Medical History / Comment(s): seizures as a child, scleroderma, ?female cancer years ago, urinary incontinence, ?kidney problems-saw a kidney dr. but didn't like him per daughter, severe migraines recently, History of Any Multi-Drug Resistant Organisms: None Reported Past Surgical History: Back Surgery, Hysterectomy Additional Past Surgical History / Comment(s): . Past Anesthesia/Blood Transfusion Reactions: No Reported Reaction Past Psychological History: No Psychological Hx Reported Smoking Status: Current every day smoker - Past Family History Mother Family Medical History: Unable to Obtain <Ivy Ho - Last Filed: 06/29/24 16:40> General Exam Limitations: altered mental status General appearance: alert, in no apparent distress Head exam: Present: atraumatic, normocephalic, normal inspection Respiratory exam: Present: normal lung sounds bilaterally. Absent: respiratory distress, wheezes, rales, rhonchi, stridor Cardiovascular Exam: Present: regular rate, normal rhythm Neurological exam: Present: alert Psychiatric exam: Present: normal affect, normal mood Skin exam: Present: warm, dry, intact, normal color. Absent: rash <Ivy Ho - Last Filed: 06/29/24 16:40> Course Vital Signs 06/29/24 06/29/24 06/29/24 13:13 14:20 15:56 Temperature 97.6 F 97.9 F Pulse Rate 68 94 88 Respiratory 14 22 16 Rate Blood Pressure 115/83 100/64 118/74 O2 Sat by Pulse 92 L 95 98 Oximetry 06/29/24 06/29/24 06/29/24 16:26 17:12 20:00 Temperature Pulse Rate 101 H 96 90 Respiratory 16 18 Rate Blood Pressure 106/66 102/64 115/70 O2 Sat by Pulse 98 98 95 Oximetry 06/29/24 06/29/24 22:17 23:02 Temperature Pulse Rate 93 79 Respiratory 18 Rate Blood Pressure 100/68 102/58 O2 Sat by Pulse Oximetry Medical Decision Making - Lab Data Result diagrams: 06/29/24 14:08 - Radiology Data Radiology results: report reviewed, image reviewed <Ivy Ho - Last Filed: 06/29/24 16:40> - Lab Data Result diagrams: 06/29/24 14:08 06/29/24 18:04 <Cecy Castellano - Last Filed: 06/29/24 23:38> - Medical Decision Making This is a 78-year-old female who presents to the emergency department for A-fib and hypotension. Was pt. sent in by a medical professional or institution? @ -[facility] Did you speak to anyone other than the patient for history? @ -Family and EMS provided all of the history. Did you review nursing and triage notes? @ -Yes, and I agree, it is accurate with regards to the patient's symptoms. Were old charts reviewed? @ -No Differential Diagnosis? @ -Infection, dehydration, medication, this is not meant to be an all-inclusive list. EKG interpreted by me (3pts min.)? @ -EKG interpreted by me demonstrating the following: Atrial fibrillation. Ventricular rate 91 bpm, QRS duration 88 ms, QTc 437 ms. X-rays interpreted by me (1pt min.)? @ -Pending CT interpreted by me (1pt min.)? @ -Not obtained U/S interpreted by me (1pt. min.)? @ -Not obtained What testing was considered but not performed? (CT, X-rays, U/S, labs)? Why? @ -None What meds were considered but not given? Why? @ -None Did you discuss the management of the patient with other professionals? @ -No Did you reconcile home meds? @ -No Was smoking cessation discussed for >3mins.? @ -No Was critical care preformed (if so, how long)? @ -No Were there social determinants of health that impacted care today? How? (Homelessness, low income, unemployed, alcoholism, drug addiction, transportation, low edu. Level, literacy, decrease access to med. care, correction, rehab)? @ -No Was there de-escalation of care discussed even if they declined? (Discuss DNR or withdrawal of care, Hospice)? @ -No What co-morbidities impacted this encounter? (DM, HTN, Smoking, COPD, CAD, Cancer, CVA, Hep., AIDS, mental health diagnosis, sleep apnea, morbid obesity)? @ -Dementia Was patient admitted / discharged? @ -When the patient arrived to the emergency department we were initially told that she only came in for concerns of hypotension, potentially related to an ongoing UTI. After she had been here for several hours we were later told that she was also sent in for A-fib with RVR. EKG did reveal A-fib, however she was rate controlled. She has no history of A-fib and is not taking any blood thinners. She was treated with IV fluids and appeared to be going in and out of A-fib. Her blood pressure was also fluctuating fairly frequently from the 90s to low 100s. Patient is A&O x 0 at baseline and her mentation was stable per [facility]. Urinalysis appears to be consistent with infection. Urine sent for culture. Medication list reviewed suggesting that she was treated with a one-time dose of fosfomycin in the last couple of weeks for a UTI. We did contact them regarding a urine culture, however they advised that the culture re turned contaminated. Case signed out to Cecy Castellano PA-C, pending the rest of her lab work, chest x-ray, and disposition. Undiagnosed new problem with uncertain prognosis? @ -None Drug Therapy requiring intensive monitoring for toxicity (Heparin, Nitro, Insu chandu, Cardizem)? @ -None Were any procedures done? (Ivy Ho) I obtained this patient as a signout. Patient is new onset A-fib and was therefore started on a heparin drip. She also has urinary tract infection. She was treated for this with antibiotics. Patient will be admitted to the hospital. She will have a cardiology consultation.. Case was discussed with [facility] was accepting of the admission. Case discussed with Dr. Nye. (Cecy Castellano) - Lab Data Lab Results 06/29/24 06/29/24 06/29/24 Range/Units 14:08 14:08 14:08 WBC 8.8 (3.8-10.6) k/uL RBC 4.85 (3.80-5.40) m/uL Hgb 15.3 (11.4-16.0) gm/dL Hct 46.7 H (34.0-46.0) % MCV 96.3 (80.0-100.0) fL MCH 31.6 (25.0-35.0) pg MCHC 32.8 (31.0-37.0) g/dL RDW 13.9 (11.5-15.5) % Plt Count 284 (150-450) k/uL MPV 8.2 Neutrophils % 70 % Lymphocytes % 21 % Monocytes % 6 % Eosinophils % 1 % Basophils % 1 % Neutrophils # 6.2 (1.3-7.7) k/uL Lymphocytes # 1.8 (1.0-4.8) k/uL Monocytes # 0.5 (0-1.0) k/uL Eosinophils # 0.1 (0-0.7) k/uL Basophils # 0.1 (0-0.2) k/uL Sodium (137-145) mmol/L Potassium (3.5-5.1) mmol/L Chloride (98-107) mmol/L Carbon Dioxide (22-30) mmol/L Anion Gap mmol/L BUN (7-17) mg/dL Creatinine (0.52-1.04) mg/dL Est GFR (CKD-EPI)AfAm (>60 ml/min/1.73 sqM) Est GFR (CKD-EPI)NonAf (>60 ml/min/1.73 sqM) Glucose (74-99) mg/dL Plasma Lactic Acid Paulo 1.1 (0.7-2.0) mmol/L Calcium (8.4-10.2) mg/dL Magnesium (1.6-2.3) mg/dL Total Bilirubin (0.2-1.3) mg/dL AST (14-36) U/L ALT (4-34) U/L Alkaline Phosphatase (38-126) U/L Troponin I (0.000-0.034) ng/mL NT-Pro-B Natriuret Pep pg/mL Total Protein (6.3-8.2) g/dL Albumin (3.5-5.0) g/dL TSH (0.465-4.680) mIU/L Urine Color Yellow Urine Appearance Turbid H (Clear) Urine pH 7.0 (5.0-8.0) Ur Specific [place] 1.018 (1.001-1.035) Urine Protein 1+ H (Negative) Urine Glucose (UA) Negative (Negative) Urine Ketones Negative (Negative) Urine Blood Moderate H (Negative) Urine Nitrite Negative (Negative) Urine Bilirubin Negative (Negative) Urine Urobilinogen <2.0 (<2.0) mg/dL Ur Leukocyte Esterase Large H (Negative) Urine RBC 85 H (0-5) /hpf Urine WBC >182 H (0-5) /hpf Amorphous Sediment Many H (None) /hpf Urine Mucus Occasional H (None) /hpf 06/29/24 06/29/24 Range/Units 16:26 18:04 WBC (3.8-10.6) k/uL RBC (3.80-5.40) m/uL Hgb (11.4-16.0) gm/dL Hct (34.0-46.0) % MCV (80.0-100.0) fL MCH (25.0-35.0) pg MCHC (31.0-37.0) g/dL RDW (11.5-15.5) % Plt Count (150-450) k/uL MPV Neutrophils % % Lymphocytes % % Monocytes % % Eosinophils % % Basophils % % Neutrophils # (1.3-7.7) k/uL Lymphocytes # (1.0-4.8) k/uL Monocytes # (0-1.0) k/uL Eosinophils # (0-0.7) k/uL Basophils # (0-0.2) k/uL Sodium 139 (137-145) mmol/L Potassium 4.0 (3.5-5.1) mmol/L Chloride 107 (98-107) mmol/L Carbon Dioxide 26 (22-30) mmol/L Anion Gap 6 mmol/L BUN 18 H (7-17) mg/dL Creatinine 0.51 L (0.52-1.04) mg/dL Est GFR (CKD-EPI)AfAm >90 (>60 ml/min/1.73 sqM) Est GFR (CKD-EPI)NonAf >90 (>60 ml/min/1.73 sqM) Glucose 89 (74-99) mg/dL Plasma Lactic Acid Paulo (0.7-2.0) mmol/L Calcium 9.3 (8.4-10.2) mg/dL Magnesium 2.0 (1.6-2.3) mg/dL Total Bilirubin 0.8 (0.2-1.3) mg/dL AST 41 H (14-36) U/L ALT 47 H (4-34) U/L Alkaline Phosphatase 164 H (38-126) U/L Troponin I <0.012 (0.000-0.034) ng/mL NT-Pro-B Natriuret Pep 141 pg/mL Total Protein 6.3 (6.3-8.2) g/dL Albumin 3.4 L (3.5-5.0) g/dL TSH 0.976 (0.465-4.680) mIU/L Urine Color Urine Appearance (Clear) Urine pH (5.0-8.0) Ur Specific [place] (1.001-1.035) Urine Protein (Negative) Urine Glucose (UA) (Negative) Urine Ketones (Negative) Urine Blood (Negative) Urine Nitrite (Negative) Urine Bilirubin (Negative) Urine Urobilinogen (<2.0) mg/dL Ur Leukocyte Esterase (Negative) Urine RBC (0-5) /hpf Urine WBC (0-5) /hpf Amorphous Sediment (None) /hpf Urine Mucus (None) /hpf Disposition <Ivy Ho - Last Filed: 06/29/24 16:40> Is patient prescribed a controlled substance at d/c from ED?: No <Cecy Castellano - Last Filed: 06/29/24 23:38> Clinical Impression: New onset a-fib, UTI (urinary tract infection) Disposition: ADMITTED IP TO THIS HOSP Condition: Stable
--- NOTE | 2024-06-29 16:55 | XR ---
EXAMINATION TYPE: XR chest 2V DATE OF EXAM: 06/29/2024 4:46 PM COMPARISON: None TECHNIQUE: XR chest 2V Frontal and lateral views of the chest. CLINICAL INDICATION:Female, 78 years old with history of Weakness; FINDINGS: Lungs/Pleura: There is flattening of the diaphragm with increased lucency of the lungs. No evidence o f pneumothorax, pleural effusion or focal consolidation. Pulmonary vascularity: Unremarkable. Heart/mediastinum: Cardiomediastinal silhouette is unremarkable. Atherosclerotic calcifications are seen in the aorta. Musculoskeletal: No acute osseous pathology. IMPRESSION: 1. No acute cardiopulmonary disease process. 2. COPD changes. [facility], , 06/29/2024 4:53 PM
[2024-06-29 18:41] LABS: ALT 47 U/L (4-34); AST 41 U/L (14-36); African American GFR (CKD) >90 (>60 ml/min/1.73 sqM); Albumin 3.4 g/dL (3.5-5.0); Alkaline Phosphatase 164 U/L (38-126); Anion Gap 6 mmol/L; Blood Urea Nitrogen 18 mg/dL (7-17); Calcium 9.3 mg/dL (8.4-10.2); Carbon Dioxide 26 mmol/L (22-30); Chloride 107 mmol/L (98-107); Glucose 89 mg/dL (74-99); Non-African American GFR(CKD) >90 (>60 ml/min/1.73 sqM); Sodium 139 mmol/L (137-145); Total Bilirubin 0.8 mg/dL (0.2-1.3); Total Protein 6.3 g/dL (6.3-8.2)
[2024-06-29 18:50] LABS: NT-Pro-B-Type Natriuretic Pept 141 pg/mL
[2024-06-29] MEDS ORDERED: HEPARIN SODIUM 1,000 UN/ML (10ML VL) IV PRN (20:08)
[2024-06-29] MEDS: LORazepam 2 MG/ML INJ IV STA (20:21)
[2024-06-29] MEDS ORDERED: NALOXONE 0.4 MG/ML 1 ML VIAL IV PRN (21:37)
[2024-06-29] MEDS: HEPARIN SOD,PORK IN 0.45% NACL 25,000 UNIT in 0.45% NACL 1 250ML.BAG IV SCH (21:46)
[2024-06-29] MEDS: HEPARIN SODIUM 1,000 UN/ML (10ML VL) IV ONE (21:48)
[2024-06-29] MEDS: SODIUM CHLORIDE 0.9% 1,000 ML IV SCH (23:20)
[2024-06-30 00:54] LABS: Partial Thromboplastin Time 24.7 sec (22.0-30.0); Prothrombin Time 11.4 sec (10.0-12.5)
[2024-06-30 02:56] LABS: Basophils % (A) 0 %; Eosinophils % (A) 1 %; HCT 45.1 % (34.0-46.0); HGB 14.3 gm/dL (11.4-16.0); Lymphocytes # (A) 1.7 k/uL (1.0-4.8); Lymphocytes % (A) 21 %; MCH 30.8 pg (25.0-35.0); MCHC 31.7 g/dL (31.0-37.0); MCV 97.1 fL (80.0-100.0); Monocytes # (A) 0.4 k/uL (0-1.0); Monocytes % (A) 5 %; Neutrophils % (A) 71 %; Platelet Count 312 k/uL (150-450); RBC 4.64 m/uL (3.80-5.40); RDW 13.4 % (11.5-15.5); WBC 8.4 k/uL (3.8-10.6)
[2024-06-30 03:16] LABS: INR 1.1 (<1.2); Partial Thromboplastin Time 82.5 sec (22.0-30.0); Prothrombin Time 12.4 sec (10.0-12.5)
[2024-06-30] MEDS ORDERED: SODIUM CHLORIDE 0.65% NASAL SPRAY 44 ML BTL NASAL PRN (07:54)
[2024-06-30] MEDS: AMMONIUM LACTATE 12% LOTION 225 GM BTL TOPICAL SCH (09:40)
[2024-06-30] MEDS: DONEPEZIL 10 MG TAB PO SCH (09:40)
[2024-06-30] MEDS: LORATADINE 10 MG TAB PO SCH (09:41)
[2024-06-30] MEDS: CALCIUM CARB-VIT D 500 MG-5 MCG TAB PO SCH (09:41)
[2024-06-30] MEDS: LEVOTHYROXINE 137 MCG TAB PO SCH (09:41)
[2024-06-30] MEDS: MULTIVITAMINS, THERA 1 EACH TAB PO SCH (09:41)
[2024-06-30] MEDS: FLUTICASONE NASAL 50MCG/SPRAY 16GM BTL EA NOSTRIL SCH (09:58)
--- NOTE | 2024-06-30 10:01 | P.HPIM ---
History of Present Illness H&P Date: 06/29/24 Chief Complaint: Hypotension/dehydration 78-year-old female, history of hypertension, hypothyroidism, dementia with behavioral disturbance, who presents to the emergency department for hypotension. Patient has dementia and is A&O x 0. Patient discussed with Cecy Castellano PA-C in ED and is evaluated in the ER #[id number]. According to the chart, patient lives alone and follows with Kaitlyn FLOREZ. Her son also helps care for her. She reportedly followed up with Kaitlyn florez today and they were concerned that her blood pressure was in the 90s systolically and they sent her here for evaluation. They did note that she was treated for UTI and are concerned that it may not have resolved. Based on her medication list it appears that she was given a one-time dose of fosfomycin. Per Kaitlyn florez, patient is at her baseline mentation. Blood work completed in ED reveals a WBC of 8.8, hemoglobin of 15.3 and platelet count of 284, sodium 139, potassium 4.2, BUNs/creatinine of 18/0.51 and blood glucose of 80 EKG completed in ED reveals atrial fibrillation with repeat study revealing atrial fibs/flutter with RVR; per chart patient was sent in initially for atrial fibrillation with RVR with heart rate in 130s; EKG was repeated and patient heart rate was controlled and the repeat study; patient continued to be in and out of atrial fibrillation; she is placed on IV heparin in ED Chest x-ray does not reveal any acute cardiopulmonary process; COPD changes are seen UA is positive for moderate amount of blood, large leukocyte esterase, WBCs; patient does have history of recurrent UTI Review of Systems ROS unobtainable: due to mental status Past Medical History Past Medical History: Cancer, Hypertension, Memory Impairment, Osteoarthritis (OA), Seizure Disorder, Thyroid Disorder Additional Past Medical History / Comment(s): seizures as a child, scleroderma, ?female cancer years ago, urinary incontinence, ?kidney problems-saw a kidney drRicarda but didn't like him per daughter, severe migraines recently, History of Any Multi-Drug Resistant Organisms: None Reported Past Surgical History: Back Surgery, Hysterectomy Additional Past Surgical History / Comment(s): . Past Anesthesia/Blood Transfusion Reactions: No Reported Reaction Past Psychological History: No Psychological Hx Reported Smoking Status: Current every day smoker - Past Family History Mother Family Medical History: Unable to Obtain Medications and Allergies Home Medications Medication Instructions Recorded Confirmed Type Levothyroxine Sodium [Synthroid] 137 mcg PO DAILY 02/03/18 06/29/24 History Ammonium Lactate [Amlactin] 1 applic TOPICAL DAILY 06/29/24 06/29/24 History Calcium Carbonate/Vitamin D3 1 tab PO DAILY 06/29/24 06/29/24 History [Calcium 500-Vit D3 400 Chew Tb] Divalproex Sprinkle [Depakote 250 mg PO HS 06/29/24 06/29/24 History Sprinkle] Donepezil [Aricept] 10 mg PO DAILY 06/29/24 06/29/24 History Fexofenadine HCl [Damaris Allergy] 180 mg PO DAILY 06/29/24 06/29/24 History Fluticasone Nasal [place] [Flonase 1 spray EA NOSTRIL DAILY 06/29/24 06/29/24 History Nasal [place]] Hydrocortisone Cream 1 applic TOPICAL BID 06/29/24 06/29/24 History [Hydrocortisone 1% Cream] Methenamine Hippurate [Hiprex] 1 gm PO BID 06/29/24 06/29/24 History Multivit-Min/Iron/Folic/Lutein 1 tab PO DAILY 06/29/24 06/29/24 History [Centrum Silver Women Tablet] Nortriptyline [Pamelor] 10 mg PO HS 06/29/24 06/29/24 History Ondansetron Odt [Zofran Odt] 4 mg PO Q8HR PRN 06/29/24 06/29/24 History Sodium Chloride [Saline Nasal Mist] 1 spray EA NOSTRIL TID PRN 06/29/24 06/29/24 History Allergies Allergy/AdvReac Type Severity Reaction Status Date / Time Penicillins Allergy Rash/Hives Verified 06/29/24 13:48 Physical Exam Vitals: Vital Signs Temp Pulse Resp BP Pulse Ox 06/29/24 20:00 90 115/70 95 06/29/24 17:12 96 18 102/64 98 06/29/24 16:26 101 H 16 106/66 98 06/29/24 15:56 88 16 118/74 98 06/29/24 14:20 97.9 F 94 22 100/64 95 06/29/24 13:13 97.6 F 68 14 115/83 92 L Intake and Output 03/27/25 03/27/25 03/27/25 06:59 14:59 22:59 Other: Weight 49.895 kg Limitations: altered mental status General appearance: alert, in no apparent distress Head exam: Present: atraumatic, normocephalic, normal inspection Respiratory exam: Present: normal lung sounds bilaterally. Absent: respiratory distress, wheezes, rales, rhonchi, stridor Cardiovascular Exam: Present: regular rate, normal rhythm Neurological exam: Present: alert Psychiatric exam: Present: normal affect, normal mood Skin exam: Present: warm, dry, intact, normal color. Absent: rash Results CBC & Chem 7: 06/30/24 02:15 06/29/24 18:04 Labs: Abnormal Lab Results - Last 24 Hours (Table) 06/29/24 06/29/24 06/29/24 Range/Units 14:08 14:08 18:04 Hct 46.7 H (34.0-46.0) % BUN 18 H (7-17) mg/dL Creatinine 0.51 L (0.52-1.04) mg/dL AST 41 H (14-36) U/L ALT 47 H (4-34) U/L Alkaline Phosphatase 164 H (38-126) U/L Albumin 3.4 L (3.5-5.0) g/dL Urine Appearance Turbid H (Clear) Urine Protein 1+ H (Negative) Urine Blood Moderate H (Negative) Ur Leukocyte Esterase Large H (Negative) Urine RBC 85 H (0-5) /hpf Urine WBC >182 H (0-5) /hpf Amorphous Sediment Many H (None) /hpf Urine Mucus Occasional H (None) /hpf Assessment and Plan Assessment: 1. New onset atrial fibrillation with RVR -Patient is currently rate controlled without intervention; she has been placed on IV heparin infusion -Plan treatment to telemetry; monitor EKG and trend troponin; recommend 2D echo -Cardiology has been notified 2. UTI -According to home medications, it appears patient has been treated with one- time dose of fosfomycin in the last couple of weeks; urine has been sent for culture and sensitivity -Patient has received 1 dose of IV Rocephin in ED; we will plan to continue till final urine culture is available -We will monitor CBC, CRP and procalcitonin 3. Mild DOMINGUEZ/dehydration; patient received 1 L of normal saline in ED; we will monitor strict NELLI's, daily weights, renal function electrolytes; avoid nephrotoxins and hypotension 4. Transaminitis; mild; recommend repeat liver function test after patient is hydrated; further recommendations if liver enzymes continue to trend up 5. Hypothyroidism; levothyroxine 137 mcg daily 6. Seasonal allergies; continue with home dose of Damaris 7. Dementia with behavior; Aricept 10 mg daily; Depakote 125 mg nightly DVT prophylaxis; SCD/IV heparin CODE STATUS; full code
--- NOTE | 2024-06-30 11:26 | P.CRDCN ---
History of Present Illness Consult date: 06/30/24 History of present illness: The patient is a pleasant 78-year-old female patient who has severe underlying dementia and we requested to see the patient in the emergency department for further evaluation of atrial fibrillation. The patient lives in a long-term. She does have severe underlying dementia. She was brought by her son to the hospital because of generalized weakness and she was diagnosed with UTI. She underwent further evaluation including EKG showed atrial fibrillation with overall controlled heart rate. Pressure has been marginal. No indication that the patient was experiencing any symptoms of chest pain or chest discomfort or shortness of breath. She does not seems in any overt congestive heart failure at this point. Never seen by our service here in the hospital. The physical examination is remarkable for irregular rhythm with mild sinus tachycardia and clear breathing sounds bilaterally and no edema was noted in the lower extremities. Currently she is not on any AV michelle yenny agents and currently she is on heparin IV Assessment UTI Severe underlying dementia Atrial fibrillation which is new Plan Continue current medical regimen Start the patient on small dose of beta-yenny with metoprolol to tartrate Obtain further cardiac testing/risk stratification including an echocardiogram Follow-up with the patient Past Medical History Past Medical History: Cancer, Hypertension, Memory Impairment, Osteoarthritis (OA), Seizure Disorder, Thyroid Disorder Additional Past Medical History / Comment(s): seizures as a child, scleroderma, ?female cancer years ago, urinary incontinence, ?kidney problems-saw a kidney drRicarda but didn't like him per daughter, severe migraines recently, History of Any Multi-Drug Resistant Organisms: None Reported Past Surgical History: Back Surgery, Hysterectomy Additional Past Surgical History / Comment(s): . Past Anesthesia/Blood Transfusion Reactions: No Reported Reaction Past Psychological History: No Psychological Hx Reported Smoking Status: Current every day smoker - Past Family History Mother Family Medical History: Unable to Obtain Medications and Allergies Home Medications Medication Instructions Recorded Confirmed Type Levothyroxine Sodium [Synthroid] 137 mcg PO DAILY 02/03/18 06/29/24 History Ammonium Lactate [Amlactin] 1 applic TOPICAL DAILY 06/29/24 06/29/24 History Calcium Carbonate/Vitamin D3 1 tab PO DAILY 06/29/24 06/29/24 History [Calcium 500-Vit D3 400 Chew Tb] Divalproex Sprinkle [Depakote 250 mg PO HS 06/29/24 06/29/24 History Sprinkle] Donepezil [Aricept] 10 mg PO DAILY 06/29/24 06/29/24 History Fexofenadine HCl [Damaris Allergy] 180 mg PO DAILY 06/29/24 06/29/24 History Fluticasone Nasal [place] [Flonase 1 spray EA NOSTRIL DAILY 06/29/24 06/29/24 History Nasal [place]] Hydrocortisone Cream 1 applic TOPICAL BID 06/29/24 06/29/24 History [Hydrocortisone 1% Cream] Methenamine Hippurate [Hiprex] 1 gm PO BID 06/29/24 06/29/24 History Multivit-Min/Iron/Folic/Lutein 1 tab PO DAILY 06/29/24 06/29/24 History [Centrum Silver Women Tablet] Nortriptyline [Pamelor] 10 mg PO HS 06/29/24 06/29/24 History Ondansetron Odt [Zofran Odt] 4 mg PO Q8HR PRN 06/29/24 06/29/24 History Sodium Chloride [Saline Nasal Mist] 1 spray EA NOSTRIL TID PRN 06/29/24 06/29/24 History Allergies Allergy/AdvReac Type Severity Reaction Status Date / Time Penicillins Allergy Rash/Hives Verified 06/29/24 13:48 Physical Exam Vitals: Vital Signs Temp Pulse Resp BP Pulse Ox 06/30/24 09:13 98.7 F 97 19 96/62 97 06/30/24 04:00 95 20 92/58 96 06/30/24 02:00 100 20 87/50 98 06/30/24 01:00 78 18 94/47 100 06/29/24 23:02 79 18 102/58 06/29/24 22:17 93 100/68 06/29/24 20:00 90 115/70 95 06/29/24 17:12 96 18 102/64 98 06/29/24 16:26 101 H 16 106/66 98 06/29/24 15:56 88 16 118/74 98 06/29/24 14:20 97.9 F 94 22 100/64 95 06/29/24 13:13 97.6 F 68 14 115/83 92 L Intake and Output 06/29/24 06/30/24 06/30/24 22:59 06:59 14:59 Intake Total 17.562 Balance 17.562 Intake: Intake, IV Titration 17.562 Amount Heparin Sod,Pork in 0.45% 17.562 NaCl 25,000 unit In 0.45 % NaCl 1 250ml.bag @ 12 UNITS/KG/HR 5.987 mls/hr IV .Q24H [facility] Rx#: [id number] Results 06/30/24 02:15 06/29/24 18:04 Cardiac Enzymes 06/29/24 06/29/24 Range/Units 16:26 18:04 AST 41 H (14-36) U/L Troponin I <0.012 (0.000-0.034) ng/mL Coagulation 06/29/24 06/30/24 06/30/24 Range/Units 22:15 02:15 07:28 PT 11.4 12.4 (10.0-12.5) sec APTT 24.7 82.5 H 45.3 H (22.0-30.0) sec CBC 06/29/24 06/30/24 Range/Units 14:08 02:15 WBC 8.8 8.4 (3.8-10.6) k/uL RBC 4.85 4.64 (3.80-5.40) m/uL Hgb 15.3 14.3 (11.4-16.0) gm/dL Hct 46.7 H 45.1 (34.0-46.0) % Plt Count 284 312 (150-450) k/uL Comprehensive Metabolic Panel 06/29/24 Range/Units 18:04 Sodium 139 (137-145) mmol/L Potassium 4.0 (3.5-5.1) mmol/L Chloride 107 (98-107) mmol/L Carbon Dioxide 26 (22-30) mmol/L BUN 18 H (7-17) mg/dL Creatinine 0.51 L (0.52-1.04) mg/dL Glucose 89 (74-99) mg/dL Calcium 9.3 (8.4-10.2) mg/dL AST 41 H (14-36) U/L ALT 47 H (4-34) U/L Alkaline Phosphatase 164 H (38-126) U/L Total Protein 6.3 (6.3-8.2) g/dL Albumin 3.4 L (3.5-5.0) g/dL Current Medications Generic Name Dose Route Start Last Admin Trade Name Priya PRN Reason Stop Dose Admin Calcium Carbonate 1 each 06/30/24 09:00 06/30/24 09:41 Calcium Carb-Vit D 500 Mg-5 Mcg Tab PO 1 each DAILY SARI Administration Divalproex Sodium 250 mg 06/30/24 21:00 Divalproex Sprinkle 125 Mg Cap.Sprink PO HS SARI Donepezil HCl 10 mg 06/30/24 09:00 06/30/24 09:40 Donepezil 10 Mg Tab PO 10 mg DAILY SARI Administration Fluticasone Propionate 1 spray 06/30/24 09:00 06/30/24 09:58 Fluticasone Nasal 50mcg/[place] 16gm Btl EA NOSTRIL 1 spray DAILY SARI Administration Heparin Sodium (Porcine) 0 unit 06/29/24 20:08 Heparin Sodium 1,000 Un/Ml (10ml Vl) IV PER PROTOCOL PRN Low PTT Protocol Heparin Sodium/Sodium Chloride 250 mls @ 5.987 mls/hr 06/29/24 20:15 06/30/24 03:58 25,000 unit/ Sodium Chloride IV 10 units/kg/hr .Q24H SARI 4.99 mls/hr Titration Protocol 12 UNITS/KG/HR Sodium Chloride 1,000 mls @ 75 mls/hr 06/29/24 21:45 06/30/24 11:16 Saline 0.9% IV 75 mls/hr .[id number] SARI Administration Ceftriaxone Sodium 2 gm/ 50 mls @ 100 mls/hr 06/30/24 09:00 06/30/24 09:38 Sodium Chloride IVPB 100 mls/hr Q24HR SARI Administration Protocol Lactic Acid 1 applic 06/30/24 09:00 06/30/24 09:40 Ammonium Lactate 12% Lotion 225 Gm Btl TOPICAL 1 applic DAILY SARI Administration Protocol Levothyroxine Sodium 137 mcg 06/30/24 09:00 06/30/24 09:41 Levothyroxine 137 Mcg Tab PO 137 mcg DAILY@0630 SARI Administration Loratadine 10 mg 06/30/24 09:00 06/30/24 09:41 Loratadine 10 Mg Tab PO 10 mg DAILY SARI Administration Multivitamins 1 each 06/30/24 09:00 06/30/24 09:41 Multivitamins, Thera 1 Each Tab PO 1 each DAILY SARI Administration Naloxone HCl 0.2 mg 06/29/24 21:37 Naloxone 0.4 Mg/Ml 1 Ml Vial IV Q2M PRN Opioid Reversal Sodium Chloride 1 spray 06/30/24 07:54 Sodium Chloride 0.65% Nasal [place] 44 Ml Btl NASAL TID PRN Allergy Symptoms Intake and Output 06/29/24 06/30/24 06/30/24 22:59 06:59 14:59 Intake Total 17.562 Balance 17.562 Intake: Intake, IV Titration 17.562 Amount Heparin Sod,Pork in 0.45% 17.562 NaCl 25,000 unit In 0.45 % NaCl 1 250ml.bag @ 12 UNITS/KG/HR 5.987 mls/hr IV .Q24H [facility] Rx#: [id number] 06/30/24 02:15 06/29/24 18:04
--- NOTE | 2024-06-30 11:56 | P.PN ---
Subjective Progress Note Date: 06/30/24 Hospital Course: Patient is a 78-year-old female with past medical history of HTN, osteoarthrit is, seizure disorder, hypothyroidism, memory impairment, scleroderma, urinary incontinence, who presented for low blood pressure and high heart rate. She has dementia and ANO x 0, lives alone, follows with Kaitlyn rivers who actually sent her here for evaluation of low blood pressure and elevated heart rate in 130s.. Per Kaitlyn rivers, patient obtained last week that were contaminated, she received fosfomycin. She also had influenza. Reviewing ER note, appears that patient was discussed with Kaitlyn, her mentation is at baseline On arrival afebrile, heart rate going up to 100, blood pressure soft 100s over 60s, satting well on room air. Blood work revealed unremarkable CBC, normal sodium, potassium, bicarb, creatinine 0.51, lactic acid 1.1, AST and ALT mildly elevated 41 and 47 accordingly, troponin negative, BNP negative, TSH 0.9. UA with 1+ proteinuria, hematuria, pyuria, positive leukocyte esterase. Chest x-ray was negative for acute process. EKG showed A-fib with RVR. Patient was initially admitted under [facility] physicians took over on 06/30 7:20 AM. She is here for further evaluation of new onset A-fib with RVR associated with hypotension. Started on IV heparin, cardiology consulted. She was started on IV ceftriaxone for UTI TTE ordered, started on Lopressor 12.5 daily Son updated Pertinent Imaging: No new imaging Subjective: Patient was seen and examined at bedside, she is demented, only complaining of feeling cold which is normal for her, otherwise denied chest pain, shortness of breath, abdominal pain, pain and burning with urination, however noted lower abdominal pain on exam Pertinent positives and negatives as discussed above, a complete review of systems was performed and all other systems are negative. Vitals Signs Reviewed. General: nontoxic, no distress, appears at stated age Derm: warm, dry Head: atraumatic, normocephalic, symmetric Eyes: EOMI, no lid lag, anicteric sclera, pupils equal round reactive to following up to 100 ENT: Nose and ears atraumatic Neck: No thyromegaly, supple Mouth: no lip lesion, mucus membranes moist Cardiovascular: S1S2 irreg, no murmur, no edema Lungs: clear to auscultation bilateral, no rhonchi, no rales, no wheeze, no accessory muscle use Abdominal: soft, suprapubic tenderness, no guarding, no appreciable organomegaly Ext: no gross muscle atrophy, muscle strength muscle strength 5 out of 5 in all 4 extremities, no contractures Neuro: CN II-XII grossly intact Psych: Alert, oriented to self, place, appropriate affect Data Reviewed Today: Pertinent Labs: Unremarkable CBC Assessment and Plan:New onset A-fib with RVR Hypotension likely secondary to above -Patient does not have leukocytosis, is afebrile, sepsis is less likely -Continue IV heparin -Heart rate is now controlled, cardiology consulted, appreciate recommendations -TSH WNL -Continue telemetry -Continue IV hydration with NS at 75 cc/h -Metoprolol tartrate 12.5 daily -TTE ordered and pending UTI -Failed outpatient fosfomycin treatment -Continue with IV ceftriaxone 2 g every 24 hours SOT 06/29 -Previous urine cultures contaminated, new cultures ordered, pending Hypothyroidism -Continue home levothyroxine 175 mcg p.o. daily Memory impairment Seizure disorder -Continue Depakote 250 p.o. at bedtime, Aricept 10 mg p.o. daily,, hold nortriptyline 10 mg p.o. nightly due to potential hypotensive effect Surrogate decision-maker: Legal guardian, Gamal Vázquez CODE STATUS:[] DVT prophylaxis: Heparin drip Anticipated discharge date: TBD Anticipated discharge place: TBD Objective - Vital Signs Vital signs: Vital Signs Temp 98.7 F 06/30/24 09:13 Pulse 97 06/30/24 09:13 Resp 19 06/30/24 09:13 BP 96/62 06/30/24 09:13 Pulse Ox 97 06/30/24 09:13 FiO2 Intake & Output 06/29/24 06/30/24 06/30/24 18:59 06:59 18:59 Intake Total 17.562 Balance 17.562 Weight 49.895 kg Intake: Intake, IV Titration 17.562 Amount Heparin Sod,Pork in 0.45% 17.562 NaCl 25,000 unit In 0.45 % NaCl 1 250ml.bag @ 12 UNITS/KG/HR 5.987 mls/hr IV .Q24H [facility] Rx#: [id number] - Labs CBC & Chem 7: 06/30/24 02:15 06/29/24 18:04 Labs: Abnormal Lab Results - Last 24 Hours (Table) 06/29/24 06/29/24 06/29/24 Range/Units 14:08 14:08 18:04 Hct 46.7 H (34.0-46.0) % APTT (22.0-30.0) sec BUN 18 H (7-17) mg/dL Creatinine 0.51 L (0.52-1.04) mg/dL AST 41 H (14-36) U/L ALT 47 H (4-34) U/L Alkaline Phosphatase 164 H (38-126) U/L Albumin 3.4 L (3.5-5.0) g/dL Urine Appearance Turbid H (Clear) Urine Protein 1+ H (Negative) Urine Blood Moderate H (Negative) Ur Leukocyte Esterase Large H (Negative) Urine RBC 85 H (0-5) /hpf Urine WBC >182 H (0-5) /hpf Amorphous Sediment Many H (None) /hpf Urine Mucus Occasional H (None) /hpf 06/30/24 06/30/24 Range/Units 02:15 07:28 Hct (34.0-46.0) % APTT 82.5 H 45.3 H (22.0-30.0) sec BUN (7-17) mg/dL Creatinine (0.52-1.04) mg/dL AST (14-36) U/L ALT (4-34) U/L Alkaline Phosphatase (38-126) U/L Albumin (3.5-5.0) g/dL Urine Appearance (Clear) Urine Protein (Negative) Urine Blood (Negative) Ur Leukocyte Esterase (Negative) Urine RBC (0-5) /hpf Urine WBC (0-5) /hpf Amorphous Sediment (None) /hpf Urine Mucus (None) /hpf
--- NOTE | 2024-06-30 14:03 | P.MHFACE ---
Face to Face Restrain/Seclus - Evaluation Patient's Immediate Situation: Endangers self safety, Endangers others' safety, Endangers staff safety Patient's Reaction to the Intervention: Uncooperative, Angry Patient's Medical & Behavioral Condition: Awake, Agitated Need to Continue or Terminate Restraint or Seclusion: Continue Face to Face Eval of Restraint Date: 06/30/24 Face to Face Eval of Restraint Time: 13:30
[2024-06-30] MEDS: HALOPERIDOL LACTATE 5 MG/ML 1 ML VIAL IM PRN (14:12)
[2024-06-30] MEDS: LORazepam 1 MG/0.5 ML VIAL IV PRN (17:08)
[2024-06-30] MEDS: DIVALPROEX SPRINKLE 125 MG CAP.SPRINK PO SCH (22:55)
--- NOTE | 2024-07-01 08:15 | P.PN ---
Subjective Progress Note Date: 07/01/24 The patient is a pleasant 78-year-old female patient who has severe underlying dementia and we requested to see the patient in the emergency department for further evaluation of atrial fibrillation. The patient lives in a fdc. She does have severe underlying dementia. She was brought by her son to the hospital because of generalized weakness and she was diagnosed with UTI. She underwent further evaluation including EKG showed atrial fibrillation with overall controlled heart rate. Pressure has been marginal. No indication that the patient was experiencing any symptoms of chest pain or chest discomfort or shortness of breath. She does not seems in any overt congestive heart failure at this point. Never seen by our service here in the hospital. The physical examination is remarkable for irregular rhythm with mild sinus tachycardia and clear breathing sounds bilaterally and no edema was noted in the lower extremities. Currently she is not on any AV michelle yenny agents and currently she is on heparin IV July 01, 2024 The patient was seen and evaluated this morning which she continues to have severe change in mental status which is her baseline. She is not a candidate for anticoagulation. I advised stopping the heparin. She is in sinus mechanism with mild sinus tachycardia with a soft blood pressure and I am going to start the patient on small dose of beta-yenny with metoprolol tartrate 12.5 mg p.o. twice daily. The physical examination is remarkable for regular rhythm with a soft systolic murmur and clear breathing sounds bilaterally and no edema was noted in the lower extremities PT echo still pending Assessment UTI Severe underlying dementia Atrial fibrillation which is new and currently the patient is in normal sinus mechanism Plan Continue current medical regimen DC heparin. The patient is not a candidate for oral anticoagulation Start the patient on small dose of beta-yenny Follow-up on the echocardiogram Objective - Vital Signs Vital signs: Vital Signs Temp 98.4 F 06/30/24 22:59 Pulse 75 07/01/24 03:21 Resp 17 07/01/24 03:21 BP 99/63 07/01/24 03:21 Pulse Ox 97 07/01/24 03:21 FiO2 Intake & Output 06/30/24 07/01/24 07/01/24 18:59 06:59 18:59 Intake Total 240 Output Total 0 Balance 240 Weight 49.895 kg 49 kg Intake: Oral 240 Output: Urine 0 Other: Voiding Method Toilet Toilet - Labs CBC & Chem 7: 06/30/24 02:15 06/29/24 18:04 Labs: Abnormal Lab Results - Last 24 Hours (Table) 06/30/24 07/01/24 Range/Units 07:28 07:23 APTT 45.3 H 35.3 H (22.0-30.0) sec Microbiology - Last 24 Hours (Table) 06/29/24 14:08 Urine Culture - Preliminary Urine,Voided Gram Neg Bacilli
[2024-07-01] MEDS ORDERED: METOPROLOL TARTRATE 12.5 MG TAB PO SCH (09:00)
[2024-07-01 09:15] LABS: ALT 51 U/L (4-34); AST 52 U/L (14-36); African American GFR (CKD) >90 (>60 ml/min/1.73 sqM); Albumin 3.6 g/dL (3.5-5.0); Alkaline Phosphatase 167 U/L (38-126); Anion Gap 7 mmol/L; Blood Urea Nitrogen 13 mg/dL (7-17); Calcium 9.4 mg/dL (8.4-10.2); Carbon Dioxide 28 mmol/L (22-30); Chloride 106 mmol/L (98-107); Glucose 106 mg/dL (74-99); Non-African American GFR(CKD) 89 (>60 ml/min/1.73 sqM); Potassium 4.5 mmol/L (3.5-5.1); Sodium 141 mmol/L (137-145); Total Bilirubin 0.7 mg/dL (0.2-1.3); Total Protein 6.6 g/dL (6.3-8.2)
[2024-07-01] MEDS: METOPROLOL TARTRATE 12.5 MG TAB PO SCH (09:49)
[2024-07-01 12:22] VITALS: BMI 17.9
--- NOTE | 2024-07-01 13:29 | P.PN ---
Subjective Progress Note Date: 07/01/24 Hospital course: Patient is a pleasant 78-year-old female with a past medical history of advanced dementia with behavioral disturbances, hypertension, hypothyroidism, and urinary incontinence. She resides in a [facility] and presented to the emergency department on 06/29/2024 secondary to tachycardia and hypotension. Upon arrival to our facility, patient underwent evaluation in the emergency department. Vital signs upon arrival show blood pressure 115/83, heart rate 68, respiratory rate 14, temp 97.6 F, and SpO2 of 92% on room air. EKG was completed showing atrial fibrillation with a controlled ventricular rate of 91 bpm and repeat EKG showing atrial fibrillation with RVR to 126 bpm. Chest x-ray completed negative for acute cardiopulmonary process showing changes of COPD with flattening of the diaphragm and increased lucency of the lungs. Labs completed and reviewed. CBC showing elevated hematocrit of 46.7 otherwise normal findings. Coagulation profile normal findings. BMP showing mild prerenal azotemia with BUN of 18, creatinine of 0.51, GFR greater than 90. Blood glucose was 89. Lactic acid was 1.1. Liver profile showing transaminitis with AST of 41, ALT of 47, and alkaline phosphatase of 164. Troponin was negative at less than 0.012. Urinalysis reporting turbid appearance positive for protein, blood, leukocyte esterase, 85 RBCs and greater than 182 WBCs. TSH was normal findings at 0.976. Patient was started on IV Cardizem and heparin infusion and admitted under our services with consultation to cardiology. Physical exam: Patient seen and fully evaluated at bedside this morning. She was resting comfortably in bed with son at bedside. Patient's only complaint is feeling cold at this time. She is currently maintaining sinus mechanism and awaiting echocardiogram to be completed. Discussed with patient's son at bedside will plan to return patient to [facility] on discharge pending echocardiogram results and final urine culture and sensitivity report. All questions answered at this time. Vital signs reviewed and stable. General: Nontoxic, no distress and appears stated age. Thin and frail build. Derm: Skin warm and dry, normal coloration for ethnicity. Head: Atraumatic, normocephalic and symmetric. Eyes: EOM's intact, no lid lag, and anicteric sclera Mouth: no lip lesions, mucus membranes moist Cardiovascular: regular rate and rhythm with normal S1S2, soft systolic murmur, positive posterior tibial pulses bilaterally, and cap refill < 2 seconds. Lungs: Respirations even, regular, and unlabored on room air. Lungs CTA bilaterally, no rhonchi, no rales, no wheezing, and no accessory muscle usage. Abdominal: soft, nontender to palpation, no guarding, no appreciable organomegaly Ext: ROM intact. No gross muscle atrophy, no edema, no contractures Neuro: Speech clear, face symmetrical and GCS 14. Psych: Alert and oriented to person and place, confused to time and situation. Appropriate and pleasant affect. Assessment and Plan of Care: New onset atrial fibrillation with RVR Hypotension, secondary to above -Cardiology following, discontinuing heparin stating patient is not a candidate for oral anticoagulation. -Cardizem infusion discontinued patient started on low-dose beta-yenny 12.5 mg twice daily. -Echocardiogram to be completed -Patient to remain on continuous telemetry monitoring UTI, failed outpatient treatment -Patient recently diagnosed with UTI failing outpatient treatment with also myosin. -Continue IV antibiotics with Rocephin 2 g every 24 hours -Urine culture preliminarily positive for gram-negative bacilli, follow-up on final culture and sensitivity report. Advanced dementia with behavioral disturbances -Patient resides in a [facility] secondary to her severe underlying dementia. -Patient to be provided with safe and supportive care with assistance and redirection as needed. -Continue medication regimen with Aricept 10 mg daily and Depakote 250 mg nightly. Hypothyroidism -Continue levothyroxine 137 mcg daily.-TSH normal findings at 0.976. Transaminitis -Appears to be chronic and stable dating back to 2018. Data and imaging reviewed: -Morning labs reviewed. PTT showing subtherapeutic PTT of 35.3. BMP unremarkable. Blood glucose 106. Magnesium 2.0. Liver profile showing elevated AST of 52, ALT of 51, and alkaline phosphatase of 167 -Vital signs reviewed. Blood pressure 104/65, heart rate 99, respiratory rate 20, temp 97.5 F, and SpO2 of 99% on room air. CODE STATUS full code DVT prophylaxis: Lovenox Discussed with: Patient, RN, patient's son at bedside, and tire repairman Anticipated discharge date: Pending completion of echocardiogram and final urine culture and sensitivity report Anticipated discharge place: Return to [facility] Patient was seen independently by Nurse Pracitioner. This document was prepared using [employer] dictation software. Please allow for errors in pulmonary nurse practitioner, while rare they do occur. Nasir Chavarria [facility] rendered care for this patient independently, reviewed the findings and plan as documented in the note above and agree with plan. I did not physically speak with or examine the patient on this date. Objective - Vital Signs Vital signs: Vital Signs Temp 98.4 F 06/30/24 22:59 Pulse 75 07/01/24 03:21 Resp 17 07/01/24 03:21 BP 99/63 07/01/24 03:21 Pulse Ox 97 07/01/24 03:21 FiO2 Intake & Output 06/30/24 07/01/24 07/01/24 18:59 06:59 18:59 Intake Total 240 Output Total 0 Balance 240 Weight 49.895 kg 49 kg Intake: Oral 240 Output: Urine 0 Other: Voiding Method Toilet Toilet - Labs CBC & Chem 7: 06/30/24 02:15 07/01/24 08:46 Labs: Abnormal Lab Results - Last 24 Hours (Table) 07/01/24 Range/Units 07:23 APTT 35.3 H (22.0-30.0) sec Microbiology - Last 24 Hours (Table) 06/29/24 14:08 Urine Culture - Preliminary Urine,Voided Gram Neg Bacilli
--- NOTE | 2024-07-01 18:10 | CA ---
Transthoracic Echo Report Name: Kristy Cooper Age: 78 Gender: F : 1945 Exam Date: 07/01/2024 08:21 Exam Location: [facility] Ht (in): 65 Wt (lb): 110 Ordering Physician: Michelle Meek MD Attending/Referring Phys: Threader Eden Nguyen RDCS Procedure CPT: Indications: a-fib Cardiac Hx: Technical Quality: Contrast 1: Total Dose (mL): Contrast 2: Total Dose (mL): MEASUREMENTS (Male / Female) Normal Values 2D ECHO LV Diastolic Diameter PLAX 3.7 cm 4.2 - 5.9 / 3.9 - 5.3 cm LV Systolic Diameter PLAX 2.7 cm IVS Diastolic Thickness 0.9 cm 0.6 - 1.0 / 0.6 - 0.9 cm LVPW Diastolic Thickness 1.0 cm 0.6 - 1.0 / 0.6 - 0.9 cm LV Relative Wall Thickness 0.5 RV Internal Dim ED PLAX 2.7 cm LA Systolic Diameter LX 2.9 cm 3.0 - 4.0 / 2.7 - 3.8 cm LV Diastolic Volume MOD BP 49.3 cm??? 67 - 155 / 56 - 104 cm??? LV Systolic Volume MOD BP 28.4 cm??? 22 - 58 / 19 - 49 cm??? LV Ejection Fraction MOD BP 42.5 % >= 55 % LV Cardiac Index MOD BP 1350.6 cm???/min???m??? LV Diastolic Volume MOD 4C 44.0 cm??? LV Systolic Volume MOD 4C 25.6 cm??? LV Ejection Fraction MOD 4C 41.9 % LV Cardiac Index MOD 4C 1187.2 cm???/min???m??? LV Diastolic Length 4C 5.7 cm LV Systolic Length 4C 4.9 cm LV Diastolic Volume MOD 2C 53.8 cm??? LV Systolic Volume MOD 2C 28.5 cm??? LV Ejection Fraction MOD 2C 47.1 % LV Cardiac Index MOD 2C 1634.4 cm???/min???m??? LV Diastolic Length 2C 6.2 cm LV Systolic Length 2C 5.6 cm LA Volume 44.8 cm??? 18 - 58 / 22 - 52 cm??? LA Volume Index 29.8 cm???/m??? 16 - 28 cm???/m??? M-MODE Aortic Root Diameter MM 3.4 cm DOPPLER AV Peak Velocity 94.0 cm/s AV Peak Gradient 3.5 mmHg MV Area PHT 5.2 cm??? MV Deceleration Time 119.6 ms TR Peak Velocity 192.2 cm/s TR Peak Gradient 14.8 mmHg Right Ventricular Systolic Press 18.6 mmHg FINDINGS Left Ventricle Left ventricular ejection fraction is estimated at 30-35 %. Small left ventricular cavity. Moderately decreased left ventricular ejection fraction. Right Ventricle Normal right ventricular size and function. Right ventricular systolic pressure within normal limits. Right Atrium Normal right atrial size. No right atrial thrombus or mass seen. Left Atrium Mildly increased left atrial volume. No left atrial thrombus or mass present. Mitral Valve Mitral valve thickened. Mild to moderate mitral regurgitation. Aortic Valve Trileaflet aortic valve. Thickened aortic valve without stenosis. Tricuspid Valve Structurally normal tricuspid valve. Mild to moderate tricuspid regurgitation. Pulmonic Valve Structurally normal pulmonic valve. No pulmonic regurgitation. Pericardium No pericardial effusion. Aorta Normal size aortic root and proximal ascending aorta. CONCLUSIONS Impaired LV function with EF around 35% 30 to 35% Possible Cor Triaatrium Mild to moderate mitral and tricuspid regurgitation Previewed by: Dr. Wilfrido Avila MD (Electronically Signed) Final Date: 01 July 2024 18:09
[2024-07-02 07:44] LABS: HCT 44.1 % (34.0-46.0); HGB 14.2 gm/dL (11.4-16.0); MCHC 32.3 g/dL (31.0-37.0); MCV 95.8 fL (80.0-100.0); Platelet Count 276 k/uL (150-450); RDW 13.5 % (11.5-15.5); WBC 6.7 k/uL (3.8-10.6)
[2024-07-02 08:22] LABS: ALT 49 U/L (4-34); AST 52 U/L (14-36); African American GFR (CKD) >90 (>60 ml/min/1.73 sqM); Albumin 3.5 g/dL (3.5-5.0); Alkaline Phosphatase 151 U/L (38-126); Anion Gap 8 mmol/L; Blood Urea Nitrogen 15 mg/dL (7-17); Calcium 9.4 mg/dL (8.4-10.2); Carbon Dioxide 25 mmol/L (22-30); Chloride 105 mmol/L (98-107); Glucose 92 mg/dL (74-99); Magnesium 1.9 mg/dL (1.6-2.3); Non-African American GFR(CKD) >90 (>60 ml/min/1.73 sqM); Potassium 4.1 mmol/L (3.5-5.1); Sodium 138 mmol/L (137-145); Total Bilirubin 0.6 mg/dL (0.2-1.3); Total Protein 6.3 g/dL (6.3-8.2)
[2024-07-02] MEDS: ENOXAPARIN 40 MG/0.4 ML SYRINGE SQ SCH (08:50)
--- NOTE | 2024-07-02 09:15 | P.PN ---
Subjective Progress Note Date: 07/02/24 The patient is a pleasant 78-year-old female patient who has severe underlying dementia and we requested to see the patient in the emergency department for further evaluation of atrial fibrillation. The patient lives in a long-term. She does have severe underlying dementia. She was brought by her son to the hospital because of generalized weakness and she was diagnosed with UTI. She underwent further evaluation including EKG showed atrial fibrillation with overall controlled heart rate. Pressure has been marginal. No indication that the patient was experiencing any symptoms of chest pain or chest discomfort or shortness of breath. She does not seems in any overt congestive heart failure at this point. Never seen by our service here in the hospital. The physical examination is remarkable for irregular rhythm with mild sinus tachycardia and clear breathing sounds bilaterally and no edema was noted in the lower extremities. Currently she is not on any AV michelle yenny agents and currently she is on heparin IV July 01, 2024 The patient was seen and evaluated this morning which she continues to have severe change in mental status which is her baseline. She is not a candidate for anticoagulation. I advised stopping the heparin. She is in sinus mechanism with mild sinus tachycardia with a soft blood pressure and I am going to start the patient on small dose of beta-yenny with metoprolol tartrate 12.5 mg p.o. twice daily. The physical examination is remarkable for regular rhythm with a soft systolic murmur and clear breathing sounds bilaterally and no edema was noted in the lower extremities PT echo still pending July 02, 2024 The patient was seen and evaluated this morning. She is in normal sinus mechanism. The echocardiogram showed cardiomyopathy with EF between 30 to 35% which could be secondary to atrial fibrillation with severe CAD to be ruled out. We will start the patient on losartan in addition to beta-yenny and start her also on oral anticoagulation. The physical examination is remarkable for regular rhythm with soft systolic murmur and clear breathing sounds bilaterally and no edema was noted in the lower extremities Assessment UTI Severe underlying dementia Atrial fibrillation which is new and currently the patient is in normal sinus m echanism Plan Continue the current medical regimen Add losartan giving the cardiomyopathy Add small dose of beta-yenny Consider ruling out severe CAD probably as an outpatient and probably in nonin vasive testing Possible discharge home Objective - Vital Signs Vital signs: Vital Signs Temp 97.7 F 07/02/24 08:00 Pulse 62 07/02/24 08:00 Resp 20 07/02/24 08:00 BP 115/74 07/02/24 08:00 Pulse Ox 99 07/02/24 08:00 FiO2 Intake & Output 07/01/24 07/02/24 07/02/24 18:59 06:59 18:59 Intake Total 470 180 Balance 470 180 Weight 49 kg 38 kg Intake: Intake, IV Titration 290 Amount Sodium Chloride 0.9% 1, 240 000 ml @ 75 mls/hr IV . [id number] SARI Rx#:[id number] cefTRIAXone 2 gm In 50 Sodium Chloride 0.9% 50 ml @ 100 mls/hr IVPB Q24HR SARI Rx#:[id number] Oral 180 180 Other: Voiding Method Toilet # Voids 1 0 1 - Labs CBC & Chem 7: 07/02/24 06:56 07/02/24 06:56 Labs: Abnormal Lab Results - Last 24 Hours (Table) 07/01/24 07/02/24 Range/Units 08:46 06:56 Glucose 106 H (74-99) mg/dL AST 52 H 52 H (14-36) U/L ALT 51 H 49 H (4-34) U/L Alkaline Phosphatase 167 H 151 H (38-126) U/L
[2024-07-02] MEDS: LOSARTAN 25 MG TAB PO SCH (11:32)
[2024-07-02] MEDS: APIXABAN 2.5 MG TABLET PO SCH (11:53)
--- NOTE | 2024-07-02 13:07 | P.PN ---
Subjective Progress Note Date: 07/02/24 Hospital course: Patient is a pleasant 78-year-old female with a past medical history of advanced dementia with behavioral disturbances, hypertension, hypothyroidism, and urinary incontinence. She resides in a longterm and presented to the emergency department on 06/29/2024 secondary to tachycardia and hypotension. Upon arrival to our facility, patient underwent evaluation in the emergency department. Vital signs upon arrival show blood pressure 115/83, heart rate 68, respiratory rate 14, temp 97.6 F, and SpO2 of 92% on room air. EKG was completed showing atrial fibrillation with a controlled ventricular rate of 91 bpm and repeat EKG showing atrial fibrillation with RVR to 126 bpm. Chest x-ray completed negative for acute cardiopulmonary process showing changes of COPD with flattening of the diaphragm and increased lucency of the lungs. Labs completed and reviewed. CBC showing elevated hematocrit of 46.7 otherwise normal findings. Coagulation profile normal findings. BMP showing mild prerenal azotemia with BUN of 18, creatinine of 0.51, GFR greater than 90. Blood glucose was 89. Lactic acid was 1.1. Liver profile showing transaminitis with AST of 41, ALT of 47, and alkaline phosphatase of 164. Troponin was negative at less than 0.012. Urinalysis reporting turbid appearance positive for protein, blood, leukocyte esterase, 85 RBCs and greater than 182 WBCs. TSH was normal findings at 0.976. 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 Patient was weaned off of Cardizem infusion and heparin infusion and was started on Eliquis 2.5 mg twice daily, losartan 12.5 mg daily, and metoprolol 12.5 mg twice daily. Physical exam: Patient seen and fully evaluated at bedside this morning. She was resting comfortably in bed with son at bedside. Patient's son reports patient seems to be doing much better today and even ate most of her breakfast. Patient currently denies having any pain or complaints at this time. Patient and her son were updated on waiting for final urine culture and sensitivity report. Vital signs reviewed and stable. General: Nontoxic, no distress and appears stated age. Thin and frail build. Derm: Skin warm and dry, normal coloration for ethnicity. Head: Atraumatic, normocephalic and symmetric. Eyes: EOM's intact, no lid lag, and anicteric sclera Mouth: no lip lesions, mucus membranes moist Cardiovascular: regular rate and rhythm with normal S1S2, soft systolic murmur, positive posterior tibial pulses bilaterally, and cap refill < 2 seconds. Lungs: Respirations even, regular, and unlabored on room air. Lungs CTA bilaterally, no rhonchi, no rales, no wheezing, and no accessory muscle usage. Abdominal: soft, nontender to palpation, no guarding, no appreciable organomeg enriqueta Ext: ROM intact. No gross muscle atrophy, no edema, no contractures Neuro: Speech clear, face symmetrical and GCS 14. Psych: Alert and oriented to person and place, confused to time and situation. Appropriate and pleasant affect. Assessment and Plan of Care: New onset atrial fibrillation with RVR Hypotension, secondary to above -Cardiology following, discussed plan of care with Dr. Avila. -Patient has been started on Eliquis 2.5 mg twice daily, losartan 12.5 mg daily, and metoprolol 12.5 mg twice daily. -Echocardiogram completed showing a reduced EF of 30 to 35% with possible Cor Triatrium and mild to moderate tricuspid regurgitation. -Patient to remain on continuous telemetry monitoring UTI, failed outpatient treatment -Patient recently diagnosed with UTI failing outpatient treatment with fosomyosin. -Continue IV antibiotics with Rocephin 2 g every 24 hours -Urine culture preliminarily positive for gram-negative bacilli, follow-up on final culture and sensitivity report. Discussed with [facility] and was informed that culture and sensitivity will not be available until sometime after 8 PM tonight. Advanced dementia with behavioral disturbances -Patient resides in a longterm secondary to her severe underlying dementia. -Patient to be provided with safe and supportive care with assistance and redirection as needed. -Continue medication regimen with Aricept 10 mg daily and Depakote 250 mg nightly. Hypothyroidism -Continue levothyroxine 137 mcg daily.-TSH normal findings at 0.976. Transaminitis -Appears to be chronic and stable dating back to 2018. Data and imaging reviewed: -Morning labs reviewed. CBC unremarkable. BMP normal findings. Blood glucose 92. Magnesium 1.9. Liver profile showing stable transaminitis with AST of 52, ALT of 49, and alkaline phosphatase of 151. -Vital signs reviewed. Blood pressure 115/74, heart rate 62, respiratory rate 20, temp 97.7 F, and SpO2 of 99% on room air. -Echocardiogram completed showing a reduced EF of 30 to 35% with possible Cor Triatrium and mild to moderate tricuspid regurgitation. CODE STATUS full code DVT prophylaxis: Lovenox Discussed with: Patient, RN, patient's son at bedside, and welder machine operator Anticipated discharge date: Pending completion of echocardiogram and final urine culture and sensitivity report Anticipated discharge place: Return to longterm Patient was seen independently by Nurse Pracitioner. This document was prepared using [employer] dictation software. Please allow for errors in computer numerical control operator, while rare they do occur. Nasir Chavarria NP rendered care for this patient independently, reviewed the findings and plan as documented in the note above and agree with plan. I did not physically speak with or examine the patient on this date. Objective - Vital Signs Vital signs: Vital Signs Temp 97.7 F 07/02/24 08:00 Pulse 62 07/02/24 08:00 Resp 20 07/02/24 08:00 BP 115/74 07/02/24 08:00 Pulse Ox 99 07/02/24 08:00 FiO2 Intake & Output 07/01/24 07/02/24 07/02/24 18:59 06:59 18:59 Intake Total 470 180 Balance 470 180 Weight 49 kg 38 kg Intake: Intake, IV Titration 290 Amount Sodium Chloride 0.9% 1, 240 000 ml @ 75 mls/hr IV . [id number] SARI Rx#:[id number] cefTRIAXone 2 gm In 50 Sodium Chloride 0.9% 50 ml @ 100 mls/hr IVPB Q24HR SARI Rx#:[id number] Oral 180 180 Other: Voiding Method Toilet # Voids 1 0 1 - Labs CBC & Chem 7: 07/02/24 06:56 07/02/24 06:56 Labs: Abnormal Lab Results - Last 24 Hours (Table) 07/01/24 07/02/24 Range/Units 08:46 06:56 Glucose 106 H (74-99) mg/dL AST 52 H 52 H (14-36) U/L ALT 51 H 49 H (4-34) U/L Alkaline Phosphatase 167 H 151 H (38-126) U/L
[2024-07-03 12:17] VITALS: BP 107/70; PULSE 78; RESP 17; TEMP 98.3
--- NOTE | 2024-07-03 13:38 | P.DS ---
Providers Date of admission: 06/29/24 22:52 Expected date of discharge: 07/03/24 Attending physician: Daniel Machuca Consults: 06/29/24 21:37 Consult Physician Routine Consulting Provider: Wilfrido Avila Consult Reason/Comments: new onset afib Do you want consulting provider notified?: Yes, Notify in am Primary care physician: Ezequiel Collado MD Hospital Course: Discharge Diagnosis: New onset atrial fibrillation with RVR. Patient discharged home on Eliquis 2.5 mg daily and metoprolol 12.5 mg daily. Patient to follow-up outpatient with farm implement mechanic in 1 week. Cardiomyopathy, unclear if ischemic or nonischemic. 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 Unleavened Dough Mixer evaluated, patient was started on Eliquis 2.5 mg twice daily, losartan 12.5 mg daily and metoprolol 12.5 mg daily. Cardiology recommending outpatient follow-up for further workup for CAD on an outpatient basis with noninvasive testing. Hypotension, secondary to above Proteus Mirabella's UTI. Patient completed 5-day course of IV antibiotics with Rocephin. She is free from urinary complaints at this time. Medically optimized for discharge. Advanced dementia with behavioral disturbances. Patient is at baseline mentation and medically optimized for discharge back to retirement. Continue medication regimen with Aricept 10 mg daily and Depakote 250 mg nightly. Hypothyroidism. Continue levothyroxine 137 mcg daily.-TSH normal findings at 0.976. Transaminitis. Appears to be chronic and stable dating back to 2018. Hospital course: Patient is a pleasant 78-year-old female with a past medical history of advanced dementia with behavioral disturbances, hypertension, hypothyroidism, and urinary incontinence. She resides in a retirement and presented to the emergency dep artment on 06/29/2024 secondary to tachycardia and hypotension. Upon arrival to our facility, patient underwent evaluation in the emergency department. Vital signs upon arrival show blood pressure 115/83, heart rate 68, respiratory rate 14, temp 97.6 F, and SpO2 of 92% on room air. EKG was completed showing atrial fibrillation with a controlled ventricular rate of 91 bpm and repeat EKG showing atrial fibrillation with RVR to 126 bpm. Chest x-ray completed negative for acute cardiopulmonary process showing changes of COPD with flattening of the diaphragm and increased lucency of the lungs. Labs completed and reviewed. CBC showing elevated hematocrit of 46.7 otherwise normal findings. Coagulation profile normal findings. BMP showing mild prerenal azotemia with BUN of 18, creatinine of 0.51, GFR greater than 90. Blood glucose was 89. Lactic acid was 1.1. Liver profile showing transaminitis with AST of 41, ALT of 47, and alkaline phosphatase of 164. Troponin was negative at less than 0.012. Urinalysis reporting turbid appearance positive for protein, blood, leukocyte esterase, 85 RBCs and greater than 182 WBCs. TSH was normal findings at 0.976. 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 Patient was weaned off of Cardizem infusion and heparin infusion and was started on Eliquis 2.5 mg twice daily, losartan 12.5 mg daily, and metoprolol 12.5 mg twice daily. Cardiology recommending outpatient follow-up for further workup for CAD on an outpatient basis with noninvasive testing. Urine culture resulting for Proteus Mirabella's, multidrug-resistant but susceptible to Rocephin. Patient completed 5-day course of IV antibiotics with Rocephin and is free from any urinary complaints. Patient cleared by cardiology and is medically optimized for discharge at this time. Called and discussed discharge plan with patient's PCP including medication changes made during this admission. Patient to follow-up outpatient with PCP in 1 to 2 days and with farm implement mechanic in 1 week Physical exam: Vital signs reviewed and stable. General: Nontoxic, no distress and appears stated age. Thin and frail build. Derm: Skin warm and dry, normal coloration for ethnicity. Head: Atraumatic, normocephalic and symmetric. Eyes: EOM's intact, no lid lag, and anicteric sclera Mouth: no lip lesions, mucus membranes moist Cardiovascular: regular rate and rhythm with normal S1S2, soft systolic murmur, positive posterior tibial pulses bilaterally, and cap refill < 2 seconds. Lungs: Respirations even, regular, and unlabored on room air. Lungs CTA bilaterally, no rhonchi, no rales, no wheezing, and no accessory muscle usage. Abdominal: soft, nontender to palpation, no guarding, no appreciable organomegaly Ext: ROM intact. No gross muscle atrophy, no edema, no contractures Neuro: Speech clear, face symmetrical and GCS 14. Psych: Alert and oriented to person and place, confused to time and situation. Appropriate and pleasant affect. A total of 35 minutes of time were spent preparing this complex discharge summary. Pt was discharged on 07/03/2024 at 10:59 AM. Patient was seen independently by Nurse Practitioner. This document was prepared using [employer] dictation software. Please allow for errors in [employer] consultant while rare they do occur. Nasir Chavarria NP rendered care for this patient independently, reviewed the findings and plan as documented in the note above. I did not physically speak with or examine the patient on this date. Patient Condition at Discharge: Stable Plan - Discharge Summary Discharge Rx Participant: No New Discharge Prescriptions: New Apixaban [Eliquis] 2.5 mg PO BID 30 Days #60 tab Metoprolol Tartrate [Lopressor] 12.5 mg PO BID 30 Days #60 tab Losartan [Cozaar] 12.5 mg PO DAILY 30 Days #15 tab Continue Levothyroxine Sodium [Synthroid] 137 mcg PO DAILY Nortriptyline [Pamelor] 10 mg PO HS Hydrocortisone Cream [Hydrocortisone 1% Cream] 1 applic TOPICAL BID Fluticasone Nasal [place] [Flonase Nasal [place]] 1 spray EA NOSTRIL DAILY Donepezil [Aricept] 10 mg PO DAILY Ammonium Lactate [Amlactin] 1 applic TOPICAL DAILY Multivit-Min/Iron/Folic/Lutein [Centrum Silver Women Tablet] 1 tab PO DAILY Fexofenadine HCl [Damaris Allergy] 180 mg PO DAILY Sodium Chloride [Saline Nasal Mist] 1 spray EA NOSTRIL TID PRN PRN Reason: Allergy Symptoms Ondansetron Odt [Zofran ODT] 4 mg PO Q8HR PRN PRN Reason: Nausea And Vomiting Methenamine Hippurate [Hiprex] 1 gm PO BID Divalproex Sprinkle [Depakote Sprinkle] 250 mg PO HS Calcium Carbonate/Vitamin D3 [Calcium 500-Vit D3 400 Chew Tb] 1 tab PO DAILY Discharge Medication List Levothyroxine Sodium [Synthroid] 137 mcg PO DAILY 02/03/18 [History] Ammonium Lactate [Amlactin] 1 applic TOPICAL DAILY 06/29/24 [History] Calcium Carbonate/Vitamin D3 [Calcium 500-Vit D3 400 Chew Tb] 1 tab PO DAILY 06/29/24 [History] Divalproex Sprinkle [Depakote Sprinkle] 250 mg PO HS 06/29/24 [History] Donepezil [Aricept] 10 mg PO DAILY 06/29/24 [History] Fexofenadine HCl [Damaris Allergy] 180 mg PO DAILY 06/29/24 [History] Fluticasone Nasal [place] [Flonase Nasal [place]] 1 spray EA NOSTRIL DAILY 06/29/24 [History] Hydrocortisone Cream [Hydrocortisone 1% Cream] 1 applic TOPICAL BID 06/29/24 [History] Methenamine Hippurate [Hiprex] 1 gm PO BID 06/29/24 [History] Multivit-Min/Iron/Folic/Lutein [Centrum Silver Women Tablet] 1 tab PO DAILY 06/29/24 [History] Nortriptyline [Pamelor] 10 mg PO HS 06/29/24 [History] Ondansetron Odt [Zofran ODT] 4 mg PO Q8HR PRN 06/29/24 [History] Sodium Chloride [Saline Nasal Mist] 1 spray EA NOSTRIL TID PRN 06/29/24 [History] Apixaban [Eliquis] 2.5 mg PO BID 30 Days #60 tab 07/03/24 [Rx] Losartan [Cozaar] 12.5 mg PO DAILY 30 Days #15 tab 07/03/24 [Rx] Metoprolol Tartrate [Lopressor] 12.5 mg PO BID 30 Days #60 tab 07/03/24 [Rx] Follow up Appointment(s)/Referral(s): Ezequiel Collado MD [Primary Care Provider] - 1-2 days Wilfrido Avila MD [STAFF PHYSICIAN] - 1 Week Patient Instructions/Handouts: A-fib (Atrial Fibrillation) (DC), Urinary Tract Infection in Women (DC) Activity/Diet/Wound Care/Special Instructions: heart healthy diet activity limited until follow up Discharge Disposition: HOME WITH HOME HEALTH SERVICES
== END 2024-07-03 12:59 | disposition home health service (06) | DRG 308 ==
LOC: EC 12:55 → 3SCARD 22:52
PROVIDERS: ADMIT Student in an Organized Health Care Education/Training Program; ATTEND Student in an Organized Health Care Education/Training Program
PROC: 3E033RZ Introduction of Antiarrhythmic into Peripheral Vein, Percutaneous Approach (ICD-10-PCS; principal; 2024-07-01)
DX: I48.91 Unspecified atrial fibrillation (principal); Q24.2 Cor triatriatum; F03.918 Unspecified dementia, unspecified severity, with other behavioral disturbance; N17.9 Acute kidney failure, unspecified; M34.9 Systemic sclerosis, unspecified; G40.909 Epilepsy, unspecified, not intractable, without status epilepticus; E03.9 Hypothyroidism, unspecified; I10 Essential (primary) hypertension; I36.1 Nonrheumatic tricuspid (valve) insufficiency; N39.0 Urinary tract infection, site not specified; Z16.24 Resistance to multiple antibiotics; I42.9 Cardiomyopathy, unspecified; I95.9 Hypotension, unspecified; R74.01 Elevation of levels of liver transaminase levels; J30.2 Other seasonal allergic rhinitis; F17.200 Nicotine dependence, unspecified, uncomplicated; E86.0 Dehydration; Z79.890 Hormone replacement therapy; Z88.0 Allergy status to penicillin; Z87.440 Personal history of urinary (tract) infections; Z79.899 Other long term (current) drug therapy; Z79.01 Long term (current) use of anticoagulants; Z90.710 Acquired absence of both cervix and uterus
CPT/HCPCS: 36415; 71046; 80053; 81001; 82140; 83605; 83735; 83880; 84443; 84484; 85025; 85027; 85610; 85730; 87077; 87086; 87186; 93005; 93306; 96361; 96365; 96366; 96367; 96372; 96375; 99285